=== PATIENT | male | born 1945 | race Caucasian/White ===

== ENCOUNTER 2018-08-05 19:25 | Emergency (ER) | payer MEDICARE, SELFPAY ==
[2018-08-05 19:26] VITALS: BP 157/96; PULSE 77; RESP 12; TEMP 36.4; O2SAT 95; BMI 31.2
--- NOTE | 2018-08-05 19:28 | ED.RN ---
RN CALLED FOR EKG, NO OLD EKGS IN MUSE
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
[2018-08-05] MEDS: 0.9% Normal Saline 1,000 ML 1000 ML IV (19:39)
[2018-08-05] MEDS: Diphth,Pertuss(Acell),Tet Vac 0.5 ML Vial IM (19:39)
[2018-08-05] MEDS: Ondansetron 4 MG/2 ML Vial IV (19:39)
[2018-08-05] MEDS: fentaNYL 100 MCG/2 ML Ampul 50 MCG IM (19:40)
[2018-08-05 19:45] LABS: Absolute Lymphocyte Count 2.56 X10^3/ul (0.83-4.51); Absolute Neutrophil Count 3.4 X10^3/uL (2.0-7.7); Basophil# 0.04 X10^3/uL; Basophil% 0.6 % (0-1); Eosinophil# 0.12 X10^3/uL; Eosinophils% 1.7 % (0-5); Hematocrit 40.9 % (40-54); Hemoglobin 13.4 g/dl (13.0-16.5); Lymphocyte # 2.56 X10^3/ul (4.0); Lymphocyte % 37.2 % (19-41); Mean Corp Hgb Conc 32.8 g/gl (32-36); Mean Corpuscular Hgb 30.7 pg (27.0-32.0); Mean Corpuscular Volume 93.6 fL (80-94); Mean Platelet Vol. 10.4 fl (6.2-12.0); Monocyte# 0.71 X10^3/uL; Monocyte% 10.3 % (0-10); Neutrophil # 3.43 X10^3/uL (2.7-7.7); Neutrophil % 49.8 % (47-70); Platelet Count 192 K/mm3 (150-450); RBC Distribution Width CV 12.8 % (11.6-14.6); RBC Distribution Width SD 43.9 fl (35.1-43.9); Red Blood Count 4.37 M/mm3 (4.6-6.2); White Blood Count 6.9 K/mm3 (4.4-11.0)
[2018-08-05 19:47] LABS: POSITIVE COUNT NO; POSITIVE DIFFERENTIAL NO; POSITIVE MORPHOLOGY NO
[2018-08-05 19:51] LABS: Anion Gap 6 (5-15); BUN 23 mg/dL (7-18); BUN/Creat Ratio 20.7 RATIO (10-20); Calcium,Total 8.2 mg/dL (8.5-10.1); Chloride 110 mmol/L (98-107); Creatinine, Serum 1.11 mg/dL (0.70-1.30); EST Glomerular Filtration Rate 69 mL/min (>60); Est Glom Filt Rate - Afr Amer 83 mL/min (>60); Glucose 125 mg/dL (74-106); Potassium 3.6 mmol/L (3.5-5.1); Sodium Level 142 mmol/L (136-145)
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
[2018-08-05 20:25] VITALS: BP 144/77; PULSE 77; RESP 14; O2SAT 94
[2018-08-05] MEDS: Morphine 4 MG/ML Syringe IV (20:31)
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
[2018-08-05 21:00] VITALS: BP 138/72; PULSE 77; RESP 14; O2SAT 93
[2018-08-05 21:11] VITALS: BP 138/72; PULSE 77; RESP 15; O2SAT 93
== END 2018-08-05 21:31 | disposition short-term general hospital (02) ==
LOC: ED 21:00
PROVIDERS: Emergency Provider Emergency Medicine; Family Provider Family Medicine; PCP Family Medicine
DX: S02.0XXA Fracture of vault of skull, initial encounter for closed fracture (principal); S02.82XA Fracture of other specified skull and facial bones, left side, initial encounter for closed fracture; S06.4X9A Epidural hemorrhage with loss of consciousness of unspecified duration, initial encounter; S02.2XXA Fracture of nasal bones, initial encounter for closed fracture; S01.01XA Laceration without foreign body of scalp, initial encounter; M25.531 Pain in right wrist; V23.4XXA Motorcycle driver injured in collision with car, pick-up truck or van in traffic accident, initial encounter; Y93.55 Activity, bike riding; Y92.9 Unspecified place or not applicable; Y99.9 Unspecified external cause status; N40.0 Benign prostatic hyperplasia without lower urinary tract symptoms; Z23 Encounter for immunization
CPT/HCPCS: 70450; 70486; 71045; 72125; 73110; 80048; 85025; 90715; 96361; 96372; 96374; 96375; 99285; J7030; A4216; J2405

== ENCOUNTER 2018-08-17 09:02 | Observation (INO) | payer MEDICARE, SELFPAY ==
[2018-08-17] VITALS (10 sets, daily range): BP systolic 120–141; BP diastolic 71–77; PULSE 68–88; RESP 11–16; TEMP 36.5–36.7; O2SAT 94–99; BMI 25.1; BMI 24.7
--- NOTE | 2018-08-17 09:04 | NURSING ---
NO OLD EKGS
--- NOTE | 2018-08-17 10:21 | RAD_ITS ---
STUDY: X-RAY CHEST REASON FOR EXAM: Male, 73 years old. Chest pain. TECHNIQUE: Single frontal view of the chest. COMPARISON: August 05, 2018 FINDINGS: There is mild hyperexpansion. There is no demonstrated pleural abnormality. Normal size heart. Normal mediastinum and raymon. Normal visualized pulmonary arteries. Normal visualized aortic arch and descending thoracic aorta. Normal visualized thoracic spine. Normal visualized ribs, clavicles, and shoulders. There is no demonstrated abnormality of the visualized soft tissue structures of the upper abdomen. RAD/Chest 1 View (Portable) IMPRESSION: Mild hyperexpansion with no acute pathology. Electronically Signed: Rick Kearns MD at 10:53 EST , Service support ,
--- NOTE | 2018-08-17 10:21 | EKG12_ITS ---
Test Reason : CP Blood Pressure : / mmHG Vent. Rate : 077 BPM Atrial Rate : 077 BPM P-R Int : 174 ms QRS Dur : 094 ms QT Int : 382 ms P-R-T Axes : 082 -25 067 degrees QTc Int : 432 ms Normal sinus rhythm Normal ECG Confirmed by ELSA BAEZ, BRIAN ([id number]), film editor supervisor CRIS ARAGON ([id number] on 08/20/2018 8:52:20 AM Referred By: Regi Flynn Confirmed By:BRIAN HUNTER MD
[2018-08-17 10:36] LABS: Absolute Lymphocyte Count 0.96 X10^3/ul (0.83-4.51); Absolute Neutrophil Count 2.5 X10^3/uL (2.0-7.7); Basophil# 0.04 X10^3/uL; Eosinophil# 0.06 X10^3/uL; Eosinophils% 1.5 % (0-5); Hematocrit 38.3 % (40-54); Hemoglobin 13.1 g/dl (13.0-16.5); Lymphocyte # 0.96 X10^3/ul (4.0); Lymphocyte % 23.2 % (19-41); Mean Corp Hgb Conc 34.2 g/gl (32-36); Mean Corpuscular Hgb 32.1 pg (27.0-32.0); Mean Corpuscular Volume 93.9 fL (80-94); Mean Platelet Vol. 9.4 fl (6.2-12.0); Monocyte# 0.51 X10^3/uL; Monocyte% 12.3 % (0-10); Neutrophil # 2.54 X10^3/uL (2.7-7.7); Neutrophil % 61.5 % (47-70); POSITIVE COUNT NO; POSITIVE DIFFERENTIAL NO; POSITIVE MORPHOLOGY NO; Platelet Count 226 K/mm3 (150-450); RBC Distribution Width CV 12.6 % (11.6-14.6); RBC Distribution Width SD 42.5 fl (35.1-43.9); Red Blood Count 4.08 M/mm3 (4.6-6.2); White Blood Count 4.1 K/mm3 (4.4-11.0)
[2018-08-17] MEDS: Acetaminophen 325 MG Tablet 650 MG PO (10:37)
[2018-08-17] MEDS: 0.9% Normal Saline 1,000 ML 150 ML IV ×2 (10:40→19:34)
[2018-08-17 10:53] LABS: Anion Gap 7 (5-15); BUN 14 mg/dL (7-18); BUN/Creat Ratio 13.5 RATIO (10-20); Calcium,Total 8.3 mg/dL (8.5-10.1); Chloride 108 mmol/L (98-107); Creatinine, Serum 1.04 mg/dL (0.70-1.30); EST Glomerular Filtration Rate 74 mL/min (>60); Est Glom Filt Rate - Afr Amer 90 mL/min (>60); Estimated Creatinine Clearance 65.32 ml/min; Glucose 103 mg/dL (74-106); Potassium 3.9 mmol/L (3.5-5.1); Sodium Level 141 mmol/L (136-145)
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
--- NOTE | 2018-08-17 11:24 | NURSING ---
DR MIKI JACOB
--- NOTE | 2018-08-17 12:38 | EKG12_ITS ---
Test Reason : CP Blood Pressure : / mmHG Vent. Rate : 078 BPM Atrial Rate : 078 BPM P-R Int : 174 ms QRS Dur : 094 ms QT Int : 400 ms P-R-T Axes : 081 -33 064 degrees QTc Int : 456 ms Normal sinus rhythm Left axis deviation Abnormal ECG Confirmed by ALONA BAEZ, KEMAL ([id number]), editorial director CRIS ARAGON ([id number] on 08/21/2018 10:16:05 AM Referred By: Regi Flynn Confirmed By:KEMAL SAGE MD
--- NOTE | 2018-08-17 13:06 | ECHOD_ITS ---
Reason For Study: Murmur Procedure This was a 2D Doppler, Color Flow transthoracic echocardiogram. Exam performed portable in patient room. Left Ventricle Normal LV size. Mild concentric left ventricular hypertrophy. Left ventricular systolic function is normal. The estimated ejection fraction is 60 %. No regional wall motion abnormalities noted. Right Ventricle Normal RV size. Normal systolic function. Atria The left atrium is moderately enlarged. Normal right atrium. Mitral Valve Posterior leaflet mitral valve prolapse. Moderately severe (3+) anteriorly directed mitral valve insufficiency. Tricuspid Valve Normal tricuspid valve. Unable to estimate RV systolic pressure due to inadequate jet, pulmonary artery pressure probably normal. Aortic Valve Normal aortic valve. Trisinus/trileaflet aortic valve. Pulmonic Valve Normal pulmonic valve. Great Vessels Normal aortic root. The pulmonary artery is normal size. Normal inferior vena cava. Pericardium/Pleural No pericardial effusion. MMode/2D Measurements & Calculations LVIDd: 5.4 cm IVSd: 1.3 cm Ao root diam: 3.7 cm LVIDs: 3.1 cm LVPWd: 1.4 cm LA dimension: 4.7 cm FS: 42.8 % LAV(MOD-bp): 106.3 ml LA A4 area: 30.4 cm2 RA A4 area: 14.7 cm2 LAV(MOD-bp) Indexed: 54.3 ml/m2 LAV(MOD-sp2): 97.7 ml LAV(MOD-sp4): 105.6 ml Time Measurements MV dec time: 0.27 sec Doppler Measurements & Calculations MV E max robbie: 105.7 cm/sec MV V2 max: 129.0 cm/sec MV P1/2t max robbie: 131.0 cm/sec MV A max robbie: 90.6 cm/sec MV max P.7 mmHg MV P1/2t: 92.6 msec MV E/A: 1.2 MV V2 mean: 75.9 cm/sec MV dec slope: 414.5 cm/sec2 MV mean P.6 mmHg MVA(P1/2t): 2.4 cm2 MV V2 VTI: 36.4 cm Ao V2 max: 111.3 cm/sec LV V1 max: 99.2 cm/sec MR max robbie: 522.8 cm/sec Ao max P.0 mmHg LV V1 max P.9 mmHg MR max P.3 mmHg PA V2 max: 93.4 cm/sec Interpretation Summary Normal LV size. Mild concentric left ventricular hypertrophy. Left ventricular systolic function is normal. The estimated ejection fraction is 60 %. The left atrium is moderately enlarged. Posterior leaflet mitral valve prolapse. Moderately severe (3+) anteriorly directed mitral valve insufficiency. Ordering Physician: Regi Flynn Referring Physician: Regi Flynn Performed By: Yahir Dennis RCS
[2018-08-17] MEDS: oxyCODONE 5 MG Tablet PO ×2 (13:50→19:46)
[2018-08-17 15:19] LABS: Cholesterol 207 mg/dL (200); High Density Lipoprotein 48 mg/dL; Triglycerides 75 mg/dL; Very Low Density Lipoprotein 15 mg/dL (5-40)
[2018-08-18] VITALS (14 sets, daily range): BP systolic 112–141; BP diastolic 67–70; PULSE 71–92; RESP 16; TEMP 36.4–36.9; O2SAT 95–97
[2018-08-18] MEDS: 0.9% Normal Saline 1,000 ML 150 ML IV ×2 (02:03→08:35)
[2018-08-18 05:14] LABS: Absolute Lymphocyte Count 1.24 X10^3/ul (0.83-4.51); Absolute Neutrophil Count 3.8 X10^3/uL (2.0-7.7); Basophil# 0.03 X10^3/uL; Basophil% 0.5 % (0-1); Eosinophil# 0.12 X10^3/uL; Hematocrit 36.1 % (40-54); Hemoglobin 11.8 g/dl (13.0-16.5); Lymphocyte # 1.24 X10^3/ul (4.0); Mean Corp Hgb Conc 32.7 g/gl (32-36); Mean Corpuscular Hgb 31.2 pg (27.0-32.0); Mean Corpuscular Volume 95.5 fL (80-94); Mean Platelet Vol. 9.7 fl (6.2-12.0); Monocyte# 0.72 X10^3/uL; Monocyte% 12.2 % (0-10); Neutrophil # 3.78 X10^3/uL (2.7-7.7); Platelet Count 216 K/mm3 (150-450); RBC Distribution Width SD 43.2 fl (35.1-43.9); Red Blood Count 3.78 M/mm3 (4.6-6.2); White Blood Count 5.9 K/mm3 (4.4-11.0)
[2018-08-18 05:17] LABS: POSITIVE COUNT NO; POSITIVE DIFFERENTIAL NO; POSITIVE MORPHOLOGY NO
[2018-08-18 05:35] LABS: Anion Gap 7 (5-15); BUN 15 mg/dL (7-18); BUN/Creat Ratio 15.7 RATIO (10-20); Calcium,Total 7.9 mg/dL (8.5-10.1); Chloride 113 mmol/L (98-107); Creatinine, Serum 0.95 mg/dL (0.70-1.30); EST Glomerular Filtration Rate 82 mL/min (>60); Est Glom Filt Rate - Afr Amer 99 mL/min (>60); Estimated Creatinine Clearance 71.51 ml/min; Glucose 98 mg/dL (74-106); Potassium 4.1 mmol/L (3.5-5.1); Sodium Level 143 mmol/L (136-145)
[2018-08-18] MEDS: Magnesium Hydroxide 30 ML UDC PO (09:07)
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
[2018-08-18] MEDS: oxyCODONE 5 MG Tablet PO (15:10)
[2018-08-19] VITALS (8 sets, daily range): BP systolic 117–125; BP diastolic 64–73; PULSE 71–93; RESP 16–18; TEMP 36.4–36.6; O2SAT 93–97
[2018-08-19] MEDS: oxyCODONE 5 MG Tablet PO ×3 (02:31→12:57)
--- NOTE | 2018-08-19 05:55 | EKG12_ITS ---
Test Reason : AM Blood Pressure : / mmHG Vent. Rate : 074 BPM Atrial Rate : 074 BPM P-R Int : 182 ms QRS Dur : 094 ms QT Int : 388 ms P-R-T Axes : 080 -17 062 degrees QTc Int : 430 ms Normal sinus rhythm Normal ECG Confirmed by ALONA BAEZ, KEMAL ([id number]), editor at large CRIS ARAGON ([id number] on 08/21/2018 10:12:50 AM Referred By: Regi Flynn Confirmed By:KEMAL SAGE MD
[2018-08-19 06:02] LABS: Anion Gap 7 (5-15); BUN 13 mg/dL (7-18); BUN/Creat Ratio 13.8 RATIO (10-20); Calcium,Total 8.2 mg/dL (8.5-10.1); Chloride 112 mmol/L (98-107); Creatinine, Serum 0.94 mg/dL (0.70-1.30); EST Glomerular Filtration Rate 83 mL/min (>60); Est Glom Filt Rate - Afr Amer 101 mL/min (>60); Estimated Creatinine Clearance 72.27 ml/min; Glucose 98 mg/dL (74-106); Sodium Level 143 mmol/L (136-145)
[2018-08-19 06:08] LABS: Absolute Lymphocyte Count 1.12 X10^3/ul (0.83-4.51); Absolute Neutrophil Count 4.8 X10^3/uL (2.0-7.7); Basophil# 0.03 X10^3/uL; Basophil% 0.4 % (0-1); Eosinophils% 1.5 % (0-5); Hematocrit 36.8 % (40-54); Lymphocyte # 1.12 X10^3/ul (4.0); Lymphocyte % 16.4 % (19-41); Mean Corp Hgb Conc 32.6 g/gl (32-36); Mean Corpuscular Hgb 31.1 pg (27.0-32.0); Mean Corpuscular Volume 95.3 fL (80-94); Mean Platelet Vol. 9.6 fl (6.2-12.0); Monocyte# 0.78 X10^3/uL; Monocyte% 11.5 % (0-10); Neutrophil # 4.76 X10^3/uL (2.7-7.7); Neutrophil % 69.9 % (47-70); Platelet Count 213 K/mm3 (150-450); RBC Distribution Width SD 43.9 fl (35.1-43.9); Red Blood Count 3.86 M/mm3 (4.6-6.2); White Blood Count 6.8 K/mm3 (4.4-11.0)
[2018-08-19 06:46] LABS: Partial Thromboplast Time 30.7 Seconds (24.1-36.2); Prothrombin Time (Protime)PT. 13.6 SECONDS (11.7-14.9)
[2018-08-19 07:02] LABS: POSITIVE COUNT NO; POSITIVE DIFFERENTIAL NO; POSITIVE MORPHOLOGY NO
--- NOTE | 2018-08-19 12:37 | STRESSREP ---
Stress Test Report Exercise myocardial perfusion stress test. 73-year-old man with a history of chest pain and mitral valve disease. Stress protocol: Resting EKG demonstrates normal sinus rhythm with a rate of 68 bpm normal intervals are noted. The patient exercised according to regular Dylan protocol for a total duration of 9 minutes. Patient completed stage III of the Dylan protocol. The maximum heart rate attained was 155 bpm which was 105% of maximum predicted heart rate the maximum workload was 10.1 metabolic equivalents. At rest there were no ST or T wave changes noted suggest ischemia peak exercise upsloping ST changes only were noted with number the criteria for ischemia. No clinical angina was noted. The patient had a short burst of a supraventricular tachyarrhythmia lasting approximately 10 beats. The test was terminated due to leg fatigue. The resting blood pressure 152/80 with a peak blood pressure 178/68 mmHg. Myocardial perfusion protocol. 11.9 mCi of technetium 99m sestamibi was injected at rest. Patient exercised according to regular Dylna protocol for total duration of 9 minutes. At peak exercise 32.3 mCi of technetium 99m sestamibi was injected stress images were obtained stress and rest images were reconstructed and compared in the short axis vertical long horizontal long axis. Gated images were also obtained per Perfusion SPECT analysis. Review of the stress images post attenuation correction demonstrated normal perfusion noted in all the rest of the myocardium. There is significant GI uptake noted obscuring part of the inferior wall. No significant change however is noted to suggest reversibility. There is thickening of all matute noted. Gated SPECT analysis: The gated ejection fraction is noted to be 66%. Conclusion: Normal exercise myocardial perfusion stress test at a high workload. Normal ejection fraction. No ischemia noted.
[2018-08-19] MEDS: Acetaminophen 325 MG Tablet 650 MG PO (12:58)
--- NOTE | 2018-08-19 14:04 | NURSING ---
This RN taking over care at this time
--- NOTE | 2018-08-19 14:14 | CHAPLAIN ---
Type of Pastoral Visit _x__ Initial Visit ___ Follow-up Visit ___ On-call Visit ___ General Patient Visit ___ Spiritual Assessment ___ Family Conference ___ Bereavement ___ Rapid Response ___ Code Blue ___ Other (describe below) Pastoral Care Referral From _x__ Patient ___ Family ___ Nurse ___ Physician ___ Physical Therapy Supervisor ___ Network Desktop Support Specialist ___ Other (describe below) Sacrament/Intervention _x__ Active listening ___ Anointing ___ Mandaen ___ Bereavement ___ Communion ___ Cara exploration ___ ___ Life review _x__ Prayer ___ Reconciliation ___ Sacrament of Sick _x__ Supportive presence ___ Wedding ___ Other (describe below) Pastoral Comments
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
--- NOTE | 2018-08-19 15:35 | DCINST_ITS ---
You will use the following diet at home:: Cardiac Your food should be the consistency of: Regular Your liquids should be the consistency of: Regular/Thin Discharge Activity: Return to Normal Activity Weight Bearing Status: Weight bearing as tolerated Call your doctor if you observe: Shortness of breath, Dizziness, Fainting spells, Swelling in the ankles, Chest pain Instructions: Recognizing a Heart Attack or Angina, Heart Valve Problems: Mitral Valve Prolapse Allergies/Adverse Reactions: Allergies tamsulosin [From Flomax] Allergy (Verified 08/17/18 09:08) Unknown Medications to take at Discharge Nitroglycerin [Nitrostat] 0.4 mg SUBLINGUAL Q5M PRN #30 tab 08/19/18 Oxycodone HCl/Acetaminophen [Percocet 2.5-325 mg Tablet] 1 tab PO Q6H PRN PRN 5 Days #10 tab 08/19/18 The following prescriptions were given: Oxycodone HCl/Acetaminophen [Percocet 2.5-325 mg Tablet] 1 tab PO Q6H PRN PRN 5 Days #10 tab PRN Reason: Pain Nitroglycerin [Nitrostat] 0.4 mg SUBLINGUAL Q5M PRN #30 tab PRN Reason: Cardiac/Chest Pain Primary Care Physician: Albin Neumann MD [Primary Care Provider] - Please follow up with your Primary Care Physician in: one week Test Results: Test results from this visit will be discussed in further detail at your follow- up appointment, if applicable. Please Follow Up With: Juarez Ortez MD When: 1-2 weeks Proposed Discharge Date: 08/19/18
== END 2018-08-19 15:34 | disposition home or self-care (01) ==
LOC: ED 10:15 → PCU 11:54
PROVIDERS: Admitting Provider Student in an Organized Health Care Education/Training Program; Emergency Provider Emergency Medicine; Family Provider Family Medicine; PCP Family Medicine; Referring Provider Student in an Organized Health Care Education/Training Program; Visit Provider Student in an Organized Health Care Education/Training Program
DX: R07.89 Other chest pain (principal); Z82.49 Family history of ischemic heart disease and other diseases of the circulatory system; N40.0 Benign prostatic hyperplasia without lower urinary tract symptoms; S06.309D Unspecified focal traumatic brain injury with loss of consciousness of unspecified duration, subsequent encounter; V19.6 Unspecified pedal cyclist injured in collision with other and unspecified motor vehicles in traffic accident; I34.0 Nonrheumatic mitral (valve) insufficiency
CPT/HCPCS: 36415; 71045; 78452; 80048; 80061; 84484; 85025; 85610; 85730; 93005; 93017; 93306; 96360; 96361; 97161; 97165; 97802; 99218; 99285; A9500; J7030; A4216; G0378

== ENCOUNTER 2018-08-24 06:48 | Inpatient (IN) | payer MEDICARE, SELFPAY ==
[2018-08-17 12:44] VITALS: BMI 24.7
[2018-08-24] VITALS (8 sets, daily range): BP systolic 116–142; BP diastolic 57–70; PULSE 83–121; RESP 15–18; TEMP 36.7–37.3; O2SAT 95–96; BMI 25.5; BMI 25.6
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
[2018-08-24 10:04] LABS: Bacteria 0 SEEN /hpf (None Seen); Mucous, Urine 0 SEEN /hpf (<or=2+); Squamous Epithelial Cells - UA 0 SEEN /hpf (0-5)
[2018-08-24] MEDS: Morphine 2 MG/ML Syringe 1 MG IV (10:06)
[2018-08-24] MEDS: 0.9% Normal Saline 1,000 ML 100 ML IV ×2 (10:06→19:46)
[2018-08-24] MEDS: Senna Tablet 1 TABLET PO ×2 (10:06→20:09)
[2018-08-24] MEDS: Finasteride 5 MG Tablet PO (10:06)
[2018-08-24 10:25] LABS: Color, Urine Yellow (Yellow); Glucose, Dipstick Normal (Normal); Ketone-Dipstick Negative (Negative); Leukocyte Esterase-Dipstick 100 /ul (Negative); Nitrite-Dipstick Negative (Negative); Occult Blood-Urine 250 /ul (Negative); Protein-Dipstick 500 mg/dl (Negative); Urine Bilirubin Dipstick Negative (Negative); Urine Urobilinogen Normal (Normal)
[2018-08-24 10:32] LABS: Red Blood Cells-Urine > 100 SEEN /hpf (0-5); Urine Clarity Cloudy (Clear); White Blood Cells 0-5 SEEN /hpf (0-5)
--- NOTE | 2018-08-24 10:38 | CM.UR ---
RN CM Assessment Met face to face with patient for initial transition planning/care coordination assessment. Introduced myself and my role. Verb understanding and agreement for assessment. Presentation: Transfer from [facility] for ileus and obstructive kidney stone. PCP: Dr. Neumann Specialists: none Preferred Pharmacy: [facility] Insurance: [employer] [facility]: per chart and confirmed by patient--has daughter, Ann-Marie Andres listed. is still alive. Home: 1 story with 3 steps. ADLs: Independent Transportation: He drives horse and buggy or bicycle. DME: Wheelchair. Denies needing any other dme. SNF/HHC: None Passport/waiver head stock operator: none Advance Directives: Doesn't have any. Has the forms but hasn't completed they as of yet. DC PLAN: Home with no needs. Jefe Redd RN, CCM.
[2018-08-24] MEDS: Acetaminophen 325 MG Tablet 650 MG PO (18:08)
[2018-08-25 00:30] VITALS: PULSE 63
[2018-08-25 02:00] VITALS: BP 112/59; PULSE 67; RESP 18; TEMP 37; O2SAT 95
[2018-08-25] MEDS: Acetaminophen 325 MG Tablet 650 MG PO ×2 (02:43→09:48)
[2018-08-25 03:50] VITALS: PULSE 63
--- NOTE | 2018-08-25 04:20 | RAD_ITS ---
STUDY: X-RAY - ABDOMEN/PELVIS REASON FOR EXAM: Male, 73 years old. Bilateral hydronephrosis. Abdominal pain TECHNIQUE: Single AP view of the abdomen / pelvis. COMPARISON: None. FINDINGS: Gaseous distended loops of transverse and right colon. No evidence of small bowel obstruction. Fecal retention in the right and left hemicolon. There is no demonstrated free abdominal air. The visualized liver, spleen and kidneys are grossly normal in size and morphology. Normal soft tissue structures. There are diffuse degenerative changes of the visualized lumbar spine. RAD/Abdomen Single View IMPRESSION: Gaseous distended loops of colon with fecal retention Electronically Signed: Elliot Bass DO at 9:25 EST Tel , Service support ,
[2018-08-25] MEDS: 0.9% Normal Saline 1,000 ML 100 ML IV (05:03)
[2018-08-25 06:42] LABS: Absolute Lymphocyte Count 1.02 X10^3/ul (0.83-4.51); Absolute Neutrophil Count 3.8 X10^3/uL (2.0-7.7); Basophil# 0.02 X10^3/uL; Basophil% 0.4 % (0-1); Eosinophil# 0.09 X10^3/uL; Eosinophils% 1.6 % (0-5); Hematocrit 33.9 % (40-54); Lymphocyte # 1.02 X10^3/ul (4.0); Lymphocyte % 18.4 % (19-41); Mean Corp Hgb Conc 32.4 g/gl (32-36); Mean Corpuscular Hgb 31.4 pg (27.0-32.0); Mean Corpuscular Volume 96.9 fL (80-94); Monocyte# 0.65 X10^3/uL; Monocyte% 11.7 % (0-10); Neutrophil # 3.76 X10^3/uL (2.7-7.7); Neutrophil % 67.7 % (47-70); Platelet Count 229 K/mm3 (150-450); RBC Distribution Width CV 13.2 % (11.6-14.6); RBC Distribution Width SD 44.7 fl (35.1-43.9); White Blood Count 5.6 K/mm3 (4.4-11.0)
[2018-08-25 06:53] LABS: BUN 15 mg/dL (7-18); Creatinine, Serum 1.16 mg/dL (0.70-1.30); EST Glomerular Filtration Rate 66 mL/min (>60); Estimated Creatinine Clearance 58.56 ml/min; Glucose 91 mg/dL (74-106)
[2018-08-25 06:54] LABS: Anion Gap 7 (5-15); BUN/Creat Ratio 12.9 RATIO (10-20); Chloride 112 mmol/L (98-107); Est Glom Filt Rate - Afr Amer 79 mL/min (>60); Potassium 3.9 mmol/L (3.5-5.1); Sodium Level 145 mmol/L (136-145)
[2018-08-25 07:13] LABS: POSITIVE COUNT NO; POSITIVE DIFFERENTIAL NO; POSITIVE MORPHOLOGY NO
[2018-08-25 07:20] VITALS: PULSE 80
[2018-08-25 07:28] VITALS: O2SAT 95
[2018-08-25 07:30] VITALS: BP 121/69; PULSE 70; RESP 18; TEMP 37.1; O2SAT 95
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
[2018-08-25] MEDS: Senna Tablet 1 TABLET PO (09:49)
[2018-08-25] MEDS: Finasteride 5 MG Tablet PO (09:49)
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
== END 2018-08-25 10:25 | disposition home or self-care (01) | DRG 683 ==
PROVIDERS: Admitting Provider Hospitalist; Family Provider Family Medicine; PCP Family Medicine; Visit Provider Hospitalist
DX: N17.9 Acute kidney failure, unspecified (principal); N13.8 Other obstructive and reflux uropathy; K56.0 Paralytic ileus; N40.1 Benign prostatic hyperplasia with lower urinary tract symptoms; N13.39 Other hydronephrosis; N20.0 Calculus of kidney; N21.0 Calculus in bladder; S02.0XXD Fracture of vault of skull, subsequent encounter for fracture with routine healing; S02.82XD Fracture of other specified skull and facial bones, left side, subsequent encounter for fracture with routine healing; S02.2XXD Fracture of nasal bones, subsequent encounter for fracture with routine healing; V13.4XXD Pedal cycle driver injured in collision with car, pick-up truck or van in traffic accident, subsequent encounter; I34.1 Nonrheumatic mitral (valve) prolapse
CPT/HCPCS: 36415; 70450; 74018; 80048; 81001; 85025; 87086; 97162; 97166; J7030

== ENCOUNTER 2018-09-19 07:31 | Observation (INO) | payer MEDICARE, SELFPAY ==
[2018-08-24 06:53] VITALS: BMI 25.5
[2018-09-06 09:06] VITALS: BMI 25.1
[2018-09-06 10:04] VITALS: BP 127/76; PULSE 75; RESP 16; TEMP 36.8; O2SAT 96; BMI 25.0
[2018-09-06 11:14] LABS: Thyroid Stim Hormone (TSH) 1.91 uIU/mL (0.358-3.74)
--- NOTE | 2018-09-17 16:57 | PCM.HP.BLA ---
History and Physical Date of Admission: 09/18/18 I have urinary retention. HPI: JOAQUÍN BOLDEN is a 73 year-old male patient who was referred by CRISTIANA ARTHUR M.D. who is here for urinary retention. His problem was diagnosed 2 weeks ago. His current symptoms did not begin after he had a surgical procedure. His urinary retention is being treated with johnson catheter. Patient denies suprapubic tube, intemittent catheterization, flomax, hytrin, cardura, uroxatrol, rapaflo, avodart, and proscar. He does not have an abnormal sensation when needing to urinate. He does have to strain or bear down to start his urinary stream. He does not have a good size and strength to his urinary stream. He is not having problems with emptying his bladder well. His urine has shut off completely. He is not having problems with urinary control or incontinence. He has previously had an indwelling catheter in for more than two weeks at a time. CC: I have symptoms of an enlarged prostate. HPI: He has been treated with Proscar. The patient has never had a surgical procedure for bladder outlet obstruction to his prostate. He does not have to wait a long time to start his urinary stream. He does have to strain or bear down to start his urinary stream. He does not have a good size and strength to his urinary stream. He does not dribble at the end of urination. He is not having problems with emptying his bladder well. His urine has shut off completely. He has previously had an indwelling catheter in for more than two weeks at a time. 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 Tobacco Use Assessment Completed: Used Tobacco in last 30 days? Smoking cessation counseling was provided. Does not use smokeless tobacco. Has never drank. Does not use drugs. Drinks 3 caffeinated drinks per day. Has not had a blood transfusion. REVIEW OF SYSTEMS: Constitutional: Patient denies fever, chills, weight loss, and weight gain. Eyes: Patient denies blurry vision, cataracts, and glaucoma. Ears, Nose, Mouth, Throat: Patient denies hearing loss, sinus infections, and sleep apnea. Cardiovascular: Patient denies chest pains, swollen ankles, irregular heartbeat, and pacemaker/defib. Respiratory: Patient denies shortness of breath, wheezing, oxygen, and cpap machine. Gastrointestinal: Patient denies constipation, vomiting, nausea, diarrhea, and abdominal pain. Genitourinary: Patient reports frequent urination, urinary retention, painful urination, history of stones, difficulty starting stream, and weak stream/scanty. Patient denies get up at night to void, leakage of urine, blood in the urine, frequent uti's, and bedwetting. Musculoskeletal: Patient denies sore muscles, back pain, and gout. Integumentary/Skin: Patient denies rash, skin cancer, and chronic itching. Neurological: Patient denies falling/unsteady, paralysis, and stroke/tia. Hematologic/Lymphatic: Patient denies abnormal bleeding, blood transfusion, swollen lymph nodes, deep venous thrombosis, and pulmonary embolism. VITAL SIGNS: 08/29/2018 09:21 AM Weight 175 lb / 79.38 kg Height 70 in / 177.8 cm BP 128/64 mmHg BMI 25.1 kg/m? - BMI Counseling was provided. PHYSICAL EXAMINATION: Anus and Perineum: No hemorrhoids. No anal stenosis. No rectal fissure, no anal fissure. No edema, no dimple, no perineal tenderness, no anal tenderness. Scrotum: No lesions. No edema. No cysts. No warts. Epididymides: Right: no spermatocele, no masses, no cysts, no tenderness, no induration, no enlargement. Left: no spermatocele, no masses, no cysts, no tenderness, no induration, no enlargement. Testes: No tenderness, no swelling, no enlargement left testes. No tenderness, no swelling, no enlargement right testes. Normal location left testes. Normal location right testes. No mass, no cyst, no varicocele, no hydrocele left testes. No mass, no cyst, no varicocele, no hydrocele right testes. Urethral Meatus: Normal size. No lesion, no wart, no discharge, no polyp. Normal location. Penis: Circumcised, no warts, no cracks. No dorsal Peyronie's plaques, no left corporal Peyronie's plaques, no right corporal Peyronie's plaques, no scarring, no warts. No balanitis, no meatal stenosis. Prostate: Prostate about 80 grams. Left lobe normal consistency, right lobe normal consistency. Symmetrical lobes. No prostate nodule. Left lobe no tenderness, right lobe no tenderness. Seminal Vesicles: Nonpalpable. Sphincter Tone: Normal sphincter. No rectal tenderness. No rectal mass. MULTI-SYSTEM PHYSICAL EXAMINATION: Constitutional: Well-nourished. No physical deformities. Normally developed. Good grooming. Neck: Neck symmetrical, not swollen. Normal tracheal position. Respiratory: No labored breathing, no use of accessory muscles. Cardiovascular: Normal temperature, normal extremity pulses, no swelling, no varicosities. Lymphatic: No enlargement of neck, axillae, groin. Skin: No paleness, no jaundice, no cyanosis. No lesion, no ulcer, no rash. Neurologic / Psychiatric: Oriented to time, oriented to place, oriented to person. No depression, no anxiety, no agitation. Gastrointestinal: No mass, no tenderness, no rigidity, non obese abdomen. Eyes: Normal conjunctivae. Normal eyelids. Ears, Nose, Mouth, and Throat: Left ear no scars, no lesions, no masses. Right ear no scars, no lesions, no masses. Nose no scars, no lesions, no masses. Normal hearing. Normal lips. Musculoskeletal: Normal gait and station of head and neck. PAST DATA REVIEWED: Source Of History: Patient Lab Test Review: PSA Records Review: Previous Doctor Records, Previous Hospital Records, Previous Patient Records Urine Test Review: Urinalysis X-Ray Review: C.T. Abdomen/Pelvis: Reviewed Report. C.T. Abdomen: Reviewed Report. PROCEDURES: None ASSESSMENT: ICD-10 Details 1 : Other retention of urine - R33.8 2 Benign prostatic hyperplasia with lower urinary tract symptoms - N40.1 3 Calculus in bladder - N21.0 PLAN: Schedule Procedure: Unspecified Date - Cryoablation Prostate - [id number] Document Letter(s): Created for Patient: Clinical Summary The risks, benefits, and some of the possible complications of the proposed procedure were discussed with the patient at length and in detail including the possibility of postoperative urinary urgency, frequency, incontinence, dysuria, hematuria, retrograde ejaculation, urinary retention, bladder neck contracture, and urethral stricture, as well as the need for a bladder biopsy, retrograde pyelograms, resection of a bladder lesion, dilation of the urethra, postoperative catheterization, placement of a ureteral stent, discovering asymptomatic prostate cancer and others. The possible need for postoperative treatments including further surgical procedures was discussed with the patient. The general risks of the operative procedure and the perioperative period were discussed with the patient at length and in detail including swelling, pain, nausea, vomiting, fever, chills, infection, wound infection, sepsis, renal failure, internal or external bleeding, intraoperative bowel, organ or vascular injuries, postoperative formation of scar tissue, the need for blood transfusions, deep venous thrombosis or blood clots, pulmonary embolus, pneumonia, respiratory failure, heart attack, stroke, he and others. All of the patient's questions were answered and he voiced an understanding of these risks, benefits and possible complications. The patient gave fully informed consent to proceed with the procedure. Notes: 73 yo male with BPH and bladder stones also with kidney stone - plan to treat later plan for TUrP and laser bladder stones at [facility].
[2018-09-18] VITALS (12 sets, daily range): BP systolic 100–121; BP diastolic 54–67; PULSE 67–86; RESP 12–18; TEMP 36.1–37.1; O2SAT 92–98; BMI 25.0
[2018-09-18] MEDS: Cefazolin 2 GM in 0.9% Normal Saline 100 ML IV (10:46)
--- NOTE | 2018-09-18 10:49 | DCINST_ITS ---
Discharge Diet: Light diet - advance as tolerated Discharge Activity: Return to Normal Activity Call your doctor if your incision/area has: Continuous Slow Oozing, Sudden Increased Bleeding, Increased Pain/ Swelling, Increased Redness, Foul Smelling Discharge, Swelling at the incision site Call your doctor if you observe: Fever of 101 or Higher, Inability to urinate, Uncontrolled pain Suture Line Care: Avoid Pulling/Pushing, Avoid Pinching/Bending Instructions: Transurethral Resection of the Prostate (TURP): Home Recovery Allergies/Adverse Reactions: Allergies tamsulosin [From Flomax] Allergy (Verified 09/18/18 09:20) Unknown Medications to take at Discharge Finasteride [Proscar] 5 mg PO DAILY #90 tab 08/25/18 Chaga 10 tab PO DAILY 09/06/18 Ibuprofen [Motrin Ib] 200 mg PO PRN PRN 09/06/18 Ciprofloxacin [Cipro] 500 mg PO BID #14 tablet 09/18/18 Ibuprofen 600 mg PO Q6H PRN PRN #20 tablet 09/18/18 The following prescriptions were given: Ibuprofen 600 mg PO Q6H PRN PRN #20 tablet PRN Reason: Pain Ciprofloxacin [Cipro] 500 mg PO BID #14 tablet Primary Care Physician: Albin Neumann MD [Primary Care Provider] - Test Results: Test results from this visit will be discussed in further detail at your follow- up appointment, if applicable. Please Follow Up With: Joo Estrada MD When: in 2 weeks, please call to make an appointment.
--- NOTE | 2018-09-18 11:10 | PROS_PTH ---
PATIENT: JOAQUÍN BOLDEN LOC: MS2 U#:[id number] AGE/SX: 73/M ROOM: [facility] [place] RE09/19/[address]: Dr. Joo Estrada MD : 1945 BED: 1 DIS: 09/20/2018 SPEC #: [id number] RECD: 09/18/18 13:10 STATUS: ANA BENNY #: [id number] HERMAN: 09/18/18 11:[address]: Joo Estrada DEPT: SURGICAL PATHOLOGY RECD BY: Sid Almanza ENTERED: 09/18/18 13:45 SP TYPE: TURP OTHR DR: Dr. Albin Neumann MD Tissues: Prostate, NOS Procedures: Surgery Specimen Level IV HEADER OPERATION: Cysto, TUR prostate PRE-OP DIAGNOSIS: Bladder stones, BPH, urinary retention TISSUE SUBMITTED: Prostate chips MICROSCOPIC DIAGNOSIS Prostate, transurethral resection: Benign nodule hyperplasia, glandular and stromal types. Mild chronic inflammation. AM:tracey 09/19/18 MICROSCOPIC DESCRIPTION Slides are reviewed. GROSS DESCRIPTION Received is one container labeled with the patient's name and designated prostate tissue. The specimen consists of multiple irregular fragments of pink-pryor, rubbery, soft tissue that in aggregate weigh 36 gm and measure in aggregate 9 x 9 x 3 cm. Bleach Boiler Filler tissue is submitted in 12 cassettes. / SJ:tracey 09/18/18 TC:3 CPT: 86089
--- NOTE | 2018-09-18 12:35 | PCM.OPRPT ---
Report of Operation Date of Procedure: 09/18/18 Pre-Operative Diagnosis: BPH with obstruction Post-Operative Diagnosis: Same Surgery/Procedure Performed:: Transurethral resection of a very large prostate Description of Surgical Findings:: 73-year-old male taken back to the operating room at the smooth induction of general anesthesia he was placed supine on the table and then a dorsolithotomy position. The catheter was removed penis and testicles are prepped and draped in usual sterile fashion he presented to the hospital for a transurethral resection of the prostate he has urinary retention from a very large prostate. 73-year-old male taken back to the operating of the smooth induction of anesthesia he was placed supine on the table the penis testicles are prepped and draped in usual fashion the catheter was removed we then went in with a 26 Frisian continuous flow resectoscope started resecting at the 6:[address] from the 6:00 to the 12:00 on the right-hand side of the prostate and then working my way from the 6:00 to the 12:00 in the left hand outside of the prostate no median lobe a very large bilateral lobes once this was all resected then I switched over to the button to vaporize the flapping tissue at the apical tissue to make sure that there is all smooth tissue smoothed out the resection obtained adequate hemostasis placed the catheter into the bladder try to irrigate but then it would not irrigate so I took the catheter back out I looked out some more clots cauterized more on the bladder neck obtain hemostasis from the bleeders but a catheter back in and then this time the catheter flowed nicely and inflated to 30 cc in the balloon. Had a very large prostate probably about an hour to have a resection time in total and was resected nicely catheter was in place and running smooth at the end of the case. Type of Anesthesia:: General Drains: 3 way johnson, 22 fr - Admit VTE Documentation VTE Present on Admission: No VTE Mechan Device Prophylaxis: SCD's
[2018-09-18] MEDS: 0.9% Normal Saline 1,000 ML 75 ML IV ×2 (13:30→21:22)
[2018-09-18] MEDS: Ciprofloxacin 400 MG/200 ML BAG 200 MG IV (18:17)
[2018-09-18] MEDS: Docusate Sodium 100 MG Capsule PO (21:22)
[2018-09-19 02:00] VITALS: BP 101/53; PULSE 64; RESP 16; TEMP 36.5; O2SAT 96
[2018-09-19] MEDS: Ciprofloxacin 400 MG/200 ML BAG 200 MG IV (06:39)
[2018-09-19 06:45] LABS: Hematocrit 33.6 % (40-54); Hemoglobin 10.8 g/dl (13.0-16.5); Mean Corp Hgb Conc 32.1 g/gl (32-36); Mean Corpuscular Hgb 30.4 pg (27.0-32.0); Mean Corpuscular Volume 94.6 fL (80-94); Platelet Count 191 K/mm3 (150-450); RBC Distribution Width CV 12.3 % (11.6-14.6); RBC Distribution Width SD 41.1 fl (35.1-43.9); Red Blood Count 3.55 M/mm3 (4.6-6.2); White Blood Count 7.6 K/mm3 (4.4-11.0)
[2018-09-19 06:50] LABS: Scan Indicated on CBC? Y/N NO
[2018-09-19 06:53] LABS: Anion Gap 5 (5-15); BUN 13 mg/dL (7-18); BUN/Creat Ratio 13.4 RATIO (10-20); Calcium,Total 7.8 mg/dL (8.5-10.1); Chloride 109 mmol/L (98-107); Creatinine, Serum 0.97 mg/dL (0.70-1.30); EST Glomerular Filtration Rate 81 mL/min (>60); Est Glom Filt Rate - Afr Amer 98 mL/min (>60); Estimated Creatinine Clearance 70.03 ml/min; Glucose 97 mg/dL (74-106); Potassium 3.9 mmol/L (3.5-5.1); Sodium Level 141 mmol/L (136-145)
--- NOTE | 2018-09-19 07:31 | PCM.PROGNOTE ---
Subjective: Urine looks pretty good today on light irrigation pink color had a very large prostate. - Physical Exam General: Alert, Oriented x3, Cooperative HEENT: Atraumatic, PERRLA, EOMI, Normocephalic Neck: Supple, No JVD, Negative Carotid Bruits Lungs: Clear to auscultation, Normal air movement Cardiovascular: Regular rate, No murmurs Abdomen: Bowel Sounds Present, Soft, Non Tender Extremities: No edema, Capillary Refill Less than 3 Seconds Skin: No rashes, No breakdown Musculoskeletal: No Tenderness to Palpation of Joints or Extremities Neurological: Cranial nerves II-XII grossly intact Psych/Mental Status: Normal Affect, Appropriate Vital Signs Temp Pulse Resp BP Pulse Ox 97.7 F L 64 16 101/53 L 96 09/19/18 02:00 09/19/18 02:00 09/19/18 02:00 09/19/18 02:00 09/19/18 02:00 Oxygen Delivery Method Room Air Weight: 79 kg Body Mass Index (BMI) 25.0 Intake and Output for Last 24 Hours 09/17/18 09/18/18 09/19/18 23:59 23:59 23:59 Intake Total 2099 / 2099 2236 / 2236 Output Total 345 / 345 2024 / 2024 Balance 1755 / 1755 211 / 211 Laboratory Tests Past 24 Hrs 09/19/18 09/19/18 06:17 06:17 WBC 7.6 RBC 3.55 L Hgb 10.8 L Hct 33.6 L MCV 94.6 H MCH 30.4 MCHC 32.1 RDW 12.3 RDW Differential 41.1 Plt Count 191 MPV 10.0 Sodium 141 Potassium 3.9 Chloride 109 H Carbon Dioxide 27.0 Anion Gap 5 BUN 13 Creatinine 0.97 Estim Creat Clear Calc 70.03 Est GFR (MDRD) Af Amer 98 Est GFR (MDRD) Non-Af 81 BUN/Creatinine Ratio 13.4 Glucose 97 Calcium 7.8 L Medical Necessity - Tobacco Use Smoking Status: Former smoker Assessment/Plan All Active Problems (Last Reviewed 09/06/18 @ 09:38 by Juarez Ortez MD) Pulmonary embolism (Resolved 2011) Preop cardiovascular exam (Acute) We will continue with CBI irrigation for 1 more day the patient can up up and walk around unfortunately cannot anticoagulated because of the prostate seen so large. We will continue with SCDs for DVT prophylaxis. Anticipate removal catheter tomorrow and home tomorrow.
[2018-09-19 07:38] VITALS: BP 106/48; PULSE 76; RESP 16; TEMP 37; O2SAT 95
[2018-09-19] MEDS: Docusate Sodium 100 MG Capsule PO ×2 (09:46→20:35)
[2018-09-19] MEDS: Pantoprazole Sodium 40 MG Tablet PO (09:46)
[2018-09-19] MEDS: 0.9% Normal Saline 1,000 ML 75 ML IV (11:16)
[2018-09-19 13:00] VITALS: O2SAT 95
[2018-09-19 14:22] VITALS: BP 111/61; PULSE 76; RESP 18; TEMP 36.9; O2SAT 95
[2018-09-19 20:39] VITALS: BP 104/49; PULSE 79; RESP 16; TEMP 36.9; O2SAT 94
[2018-09-20] MEDS: 0.9% Normal Saline 1,000 ML 75 ML IV (00:02)
[2018-09-20 03:00] VITALS: BP 107/60; PULSE 70; RESP 16; TEMP 37.3; O2SAT 94
[2018-09-20 07:26] VITALS: O2SAT 94
--- NOTE | 2018-09-20 07:29 | PCM.DC.SUM ---
Discharge Date and Diagnosis Date of Admission: 09/18/18 Date of Discharge: 09/20/18 - Secondary Discharge Diagnosis Chronic Problems (Last Reviewed 09/06/18 @ 09:38 by Juarez Ortez MD) Nonrheumatic mitral (valve) prolapse (Chronic) Hospital Course and Treatment Operations: None, TURP Summary of Care Provided: The patient is a 73 year old Male with large prostate s/p turp d/c home after voids on pod #2 - Physical Exam General: Alert, Oriented x3, Cooperative HEENT: Atraumatic, PERRLA, EOMI, Normocephalic Neck: Supple, No JVD, Negative Carotid Bruits Lungs: Clear to auscultation, Normal air movement Cardiovascular: Regular rate, No murmurs Abdomen: Bowel Sounds Present, Soft, Non Tender Extremities: No edema, Capillary Refill Less than 3 Seconds Skin: No rashes, No breakdown Musculoskeletal: No Tenderness to Palpation of Joints or Extremities Neurological: Cranial nerves II-XII grossly intact Psych/Mental Status: Normal Affect, Appropriate Vital Signs Temp Pulse Resp BP Pulse Ox 99.1 F 70 16 107/60 94 09/20/18 03:00 09/20/18 03:00 09/20/18 03:00 09/20/18 03:00 09/20/18 07:26 Oxygen Delivery Method Room Air Weight: 79 kg Body Mass Index (BMI) 25.0 Intake and Output for Last 24 Hours 09/18/18 09/19/18 09/20/18 23:59 23:59 23:59 Intake Total 2100 / 2100 3345 / 3345 1054 / 1054 Output Total 345 / 345 5795 / 5795 1300 / 1300 Balance 1755 / 1755 -2450 / -2450 -246 / -246 Discharge Diet: Light diet - advance as tolerated Discharge Activity: Return to Normal Activity Call your doctor if your incision/area has: Continuous Slow Oozing, Sudden Increased Bleeding, Increased Pain/ Swelling, Increased Redness, Foul Smelling Discharge, Swelling at the incision site Call your doctor if you observe: Fever of 101 or Higher, Inability to urinate, Uncontrolled pain Suture Line Care: Avoid Pulling/Pushing, Avoid Pinching/Bending Home Medications: Medications to take at Discharge Finasteride [Proscar] 5 mg PO DAILY #90 tab 08/25/18 Chaga 10 tab PO DAILY 09/06/18 Ibuprofen [Motrin Ib] 200 mg PO PRN PRN 09/06/18 Ciprofloxacin [Cipro] 500 mg PO BID #14 tablet 09/18/18 Ibuprofen 600 mg PO Q6H PRN PRN #20 tablet 09/18/18 Following Prescrptions Were Given to Patient: Ibuprofen 600 mg PO Q6H PRN PRN #20 tablet PRN Reason: Pain Ciprofloxacin [Cipro] 500 mg PO BID #14 tablet Primary Care Physician: Albin Neumann MD [Primary Care Provider] - Please Follow Up With: Joo Estrada MD When: in 2 weeks, please call to make an appointment. Patient Instructions: Transurethral Resection of the Prostate (TURP): Home Recovery Medical Necessity - Tobacco Use Smoking Status: Former smoker Meaningful Use Info Meaningful Use Diagnoses (Choose all that apply): None applicable
[2018-09-20 08:17] VITALS: BP 111/61; PULSE 77; RESP 16; TEMP 36.6; O2SAT 95
[2018-09-20] MEDS: Pantoprazole Sodium 40 MG Tablet PO (08:19)
[2018-09-20] MEDS: Docusate Sodium 100 MG Capsule PO (08:19)
[2018-09-20 13:26] VITALS: BP 107/58; PULSE 89; RESP 16; TEMP 36.8; O2SAT 98
== END 2018-09-20 16:18 | disposition home or self-care (01) ==
LOC: SDC 15:03 → MS2 20:42
PROVIDERS: Anesthesiology; Admitting Provider Urology; Family Provider Family Medicine; PCP Family Medicine; Referring Provider Urology; Visit Provider Urology
PROC: (CPT 52601; principal; 2018-09-18 11:00)
DX: N40.1 Benign prostatic hyperplasia with lower urinary tract symptoms (principal); N13.8 Other obstructive and reflux uropathy; R33.8 Other retention of urine; N21.0 Calculus in bladder; Z86.711 Personal history of pulmonary embolism; I25.2 Old myocardial infarction; Z87.891 Personal history of nicotine dependence; Z79.899 Other long term (current) drug therapy
CPT/HCPCS: 00914; 52601; 36415; 80048; 84443; 85027; 88305; 96361; 96365; 96366; 99218; J7030; J7120; G0378; G0379; J0744; J2405

== ENCOUNTER → 2018-12-31 16:28 | Outpatient (CLI) | payer MEDICARE, SELFPAY ==
[2018-09-18 14:42] VITALS: BMI 25.0
[2018-12-31 18:11] LABS: PSA,Total- Diagnostic 1.67 ng/mL (0.0-4.0)
== END ==
PROVIDERS: Family Provider Family Medicine; PCP Family Medicine; Referring Provider Urology; Visit Provider Urology
DX: R97.20 Elevated prostate specific antigen [PSA] (principal)
CPT/HCPCS: 36415; 84153

== ENCOUNTER → 2019-01-23 17:01 | Outpatient (CLI) | payer MEDICARE, SELFPAY ==
[2019-01-07 09:54] VITALS: BMI 26.1
[2019-01-23 17:18] LABS: Absolute Lymphocyte Count 1.31 X10^3/uL (0.83-4.51); Absolute Neutrophil Count 3.9 X10^3/uL (2.0-7.7); Basophil# 0.05 X10^3/uL; Basophil% 0.9 % (0-1); Eosinophil# 0.05 X10^3/uL; Eosinophils% 0.9 % (0-5); Hematocrit 39.9 % (40-54); Lymphocyte # 1.31 X10^3/ul (4.0); Lymphocyte % 22.4 % (19-41); Mean Corp Hgb Conc 32.6 g/dL (32-36); Mean Corpuscular Hgb 28.9 pg (27.0-32.0); Mean Corpuscular Volume 88.7 fL (80-94); Mean Platelet Vol. 10.1 fl (6.2-12.0); Monocyte# 0.57 X10^3/uL; Monocyte% 9.7 % (0-10); NRBC Flagged by Analyzer 0 % (0-5); Neutrophil # 3.85 X10^3/uL (2.7-7.7); Neutrophil % 65.8 % (47-70); Platelet Count 190 K/mm3 (150-450); RBC Distribution Width CV 14.8 % (11.6-14.6); RBC Distribution Width SD 48.1 fl (35.1-43.9); White Blood Count 5.9 K/mm3 (4.4-11.0)
[2019-01-23 17:51] LABS: Anion Gap 9 (5-15); BUN 25 mg/dL (7-18); BUN/Creat Ratio 23.8 RATIO (10-20); Calcium,Total 8.6 mg/dL (8.5-10.1); Chloride 109 mmol/L (98-107); Creatinine, Serum 1.05 mg/dL (0.70-1.30); EST Glomerular Filtration Rate 73 mL/min (>60); Est Glom Filt Rate - Afr Amer 89 mL/min (>60); Glucose 97 mg/dL (74-106); Potassium 4.1 mmol/L (3.5-5.1); Sodium Level 143 mmol/L (136-145)
== END ==
PROVIDERS: Family Provider Family Medicine; PCP Family Medicine; Referring Provider Internal Medicine Cardiovascular Disease; Visit Provider Internal Medicine Cardiovascular Disease
DX: I34.0 Nonrheumatic mitral (valve) insufficiency (principal)
CPT/HCPCS: 36415; 80048; 85025

== ENCOUNTER 2019-01-27 08:17 | Outpatient (CLI) | payer MEDICARE, SELFPAY ==
[2019-01-07 09:54] VITALS: BMI 26.1
[2019-01-27 08:34] VITALS: BMI 25.1
--- NOTE | 2019-01-27 08:50 | ECHOTEE_ITS ---
Reason For Study: MVP Medication MILADIS probe passed with minimal difficulty. No complications were noted. Cetacaine Topical [place] given X3 orally. Versed 1 mg given slow IVP. Fentanyl 50 mcg given slow IVP. Performed a rapid injection of agitated mix of 9 cc saline and 1cc air to assess for atrial septal defect. Left Ventricle Normal LV size. Left ventricular systolic function is normal. The estimated ejection fraction is 60 %. No regional wall motion abnormalities noted. Right Ventricle Normal RV size. Normal systolic function. Atria Bubble contrast study negative for right to left interatrial shunt. The left atrium is moderately enlarged. Normal right atrium. Mitral Valve Moderate mitral valve prolapse, posterior leaflet. Moderately severe (3+) eccentric mitral valve insufficiency. Tricuspid Valve Normal tricuspid valve. Mild tricuspid valve insufficiency. Aortic Valve Normal aortic valve. Trisinus/trileaflet aortic valve. Pulmonic Valve Normal pulmonic valve. Pericardium No pericardial effusion. Interpretation Summary Normal LV size. Left ventricular systolic function is normal. The estimated ejection fraction is 60 %. Moderate mitral valve prolapse, posterior leaflet Moderately severe (3+) eccentric mitral valve insufficiency. Ordering Physician: Juarez Ortez Referring Physician: Albin Neumann Performed By: Yahir Dennis RCS
--- NOTE | 2019-01-27 08:56 | HP.PCM_ITS ---
Problem List (1) Non-rheumatic mitral regurgitation Status: Chronic (2) Nonrheumatic mitral (valve) prolapse Status: Chronic History and Physical Date of Admission: 01/27/19 [facility] History of Present Illness Details: JOAQUÍN BOLDEN, is a 73 M who presents to the office today for a right and left heart cath. He was initially seen for mitral regurgitant murmur and this was confirmed with the echocardiogram which demonstrated an ejection fraction of 60%, moderately enlarged left atrium, posterior mitral valve leaflet prolapse and 3+ moderately severe anteriorly directed mitral regurgitation. He also underwent stress testing we did not demonstrate any evidence of ischemia. From the cardiovascular standpoint he appears to be doing well. He recently underwent an uneventful transurethral resection of the prostate. He has had no dizziness or diaphoresis near syncope or syncope. Intake Vitals signs: see chart Allergies tamsulosin [From Flomax] Allergy (Verified 01/07/19 09:54) Unknown [facility] Medical History Non-rheumatic mitral regurgitation (Chronic) Nonrheumatic mitral (valve) prolapse (Chronic) Enlarged prostate (Chronic) Nasal bone fractures (Chronic) Nondisplaced fracture of left frontal skull (Chronic) Acute kidney injury (Resolved 08/25/18) Adynamic ileus (Resolved) History of pulmonary embolism (Resolved) Hydronephrosis due to obstruction of bladder (Resolved 08/25/18) Traumatic epidural hematoma (Resolved) Surgical History History of transurethral resection of prostate (Resolved 08/2018) History of cataract surgery (Resolved) History of tonsillectomy (Resolved) Family History Father Myocardial infarction DC in his 40's CAD (coronary artery disease) Brother CAD (coronary artery disease) had a CABG age 65 Social History (Updated 01/07/19 @ 15:42 by Juarez Ortez MD) Smoking Status: Former smoker ROS Const Const: Negative for fatigue, weakness, headache(s), frequent falls, difficulty sleeping or excessive sweating Eyes Eyes: Negative for loss of peripheral vision, transient loss of vision, blurry vision, double vision or tunnel vision ENT ENT: Negative for headache(s), dizziness, Nosebleed/epistaxis or balance problems Cardio Chest Pain: No Palpitations: No Edema: None Muscle aches with walking: None Resp Respiratory: Negative for SOB with activity, SOB at rest, SOB orthopnea\SOB lying down, Cough or paroxysmal nocturnal dyspnea GI GI: Negative nausea, vomiting, heartburn or black,tarry stools : Negative for hematuria Musc Musc: Negative for muscle aches/ myalgia, muscle weakness, joint pain or balance problems Skin Skin: Negative non-healing lesions, rash or unusual bruising Neuro Neuro: Negative for dizziness, lightheadedness, near syncope, syncope, orthostatic symptoms, frequent falls, headache(s), weakness, blurry vision, double vision or lack of coordination [place] Hematologic/Lymphatic: Negative for easy bleeding or easy bruising Endo Endo: Negative for fatigue, excessive sweating or increased thirst/drinking Psych Psych: Negative for anxiety or depression Allergy Allergy/Immunology: Negative for hives, Negative for rash Cardiology Exam Const Appearance: cooperative, healthy appearing, no acute distress, well developed and well groomed Nutritional Appearance: average body habitus and well nourished Orientation: alert, awake and oriented x3 Head Head: normal to inspection, normocephalic and atraumatic Ears: hearing grossly normal bilaterally and external ears normal Nose: external nose normal, nares normal, nasal mucous membranes and turbinates normal, septum normal, no nasal discharge Face and Sinus: face symmetric Mouth: oral mucosae normal, tongue normal, oropharynx normal and moist mucous membranes Teeth and gingiva: dentition normal Throat: posterior oropharynx normal, tonsils normal and uvula midline Eyes General: appearance normal, both eyes and all related structures Eyelids: eyelids normal Conjunctivae: conjunctivae normal Pupils: PERRL, normal by confrontation and accommodation normal EOM: EOM intact bilaterally Neck Neck: normal visual inspection, trachea midline and no JVD JVD: +5 Carotids: normal carotid upstroke and bounding pulses Chest Chest inspection: normal inspection of the chest, symmetric chest movement and normal respiratory effort Auscultation: Bilateral: Clear to Auscultation Cardio Palpation: normal PMI Rate: regular rate Rhythm: regular rhythm Heart sounds: S1 normal, S2 normal and normal, physiologic split S2; negative rub, gallop or murmur Murmur: Grade 3/6, harsh, holosystolic and ELLA loudest at apex -> axilla GI GI: normal to inspection, soft, no hepatosplenomegaly and bowel sounds present Neuro General: alert, awake, oriented x3, gait normal, moves all extremities and no focal sensory deficit Skin Skin: no rashes or lesions noted Extremities Pulses: Normal: Right Femoral Pulse, Left Femoral Pulse, Right Dorsalis Pedis Pulse, Left Dorsalis Pedis Pulse, Right Posterior Tibial Pulse, Left Posterior Tibial Pulse, Right Radial Pulse, Left Radial Pulse Lower Extremity Edema: None: Bilateral Musculoskel Musculoskeletal: No joint tenderness Psych Psychological: normal affect Assessment & Plan 1. Non-rheumatic mitral regurgitation I34.0 Plan He does have evidence of mitral regurgitation and mitral valve prolapse which is at least moderately severe with an anteriorly directed jet. He will undergo a left heart catheterization, right heart catheterization, transesophageal echocardiogram today, a view to mitral valve repair. Coding Level of Care Code Off vis,est,level 3 Diagnoses Non-rheumatic mitral regurgitation I34.0
--- NOTE | 2019-01-27 12:13 | CL.D_ITS ---
Patient Name: JOAQUÍN BOLDEN Study Date: 01/27/2019 Performing: Juarez Ortez MD Ht: 70.07 inches 178 cm : 1945 Wt: 171.98 lbs 78.01 kg Age: 73 Gender: male BSA: 1.96 PROCEDURE(S) PERFORMED MY04-BHW/LHC/COR/LV CLINICAL PROFILE AND INDICATIONS Indications: Valvular Disease Heart Failure: None Stress/Imaging Stress/Image Study Performed: No CAD Presentations: No Sxs, no angina. CONCLUSIONS Normal coronary arteries Normal LV size, wall motion,and systolic function Right heart pressures - Normal Mitral Valve Insufficiency Moderate Mitral Valve Prolapse Severe RECOMMENDATIONS Surgery consult for Valve Replacement surgery DESCRIPTION OF PROCEDURE The patient arrived to the procedure lab. The risks and benefits of the procedure as well as a full d escription of our services here and current unavailability of surgical backup were fully explained to the patient and/or their significant other prior to the catheterization. The Timeout was completed, verifying the correct patient and procedure. The patient's procedural site was prepped and draped in the usual fashion. Local anesthetic was given subcutaneously to right radial region with Lidocaine 2% . Using a modified Seldinger technique, arterial access was obtained via the right radial artery, a 6 Fr sheath was inserted. A 7Fr thermal dilution catheter was inserted and right heart pressures were recorded, it was then advanced to PA position for cardiac outputs. Thermal dilution cardiac outputs w ere then recorded. O2 saturations were then obtained. The Thermal dilution catheter was then removed. Left Coronary Artery selective angiography was performed in multiple views using a 5 Fr. 4.0 [place] catheter. Right Coronary Artery selective angiography was then performed in multiple views using a 5 Fr. 4.0 [place] catheter. Left Ventriculography was performed in COTTON projection using a 5 Fr. Pigtail catheter. LV to AO pullback pressures were then recorded.The arterial sheath was pulled and a TR Band was applied for hemostasis CORONARY ANGIOGRAPHY DOMINANCE: Right Dominant LEFT HEART ASSESSMENT Left Ventricular Ejection Fraction: by LV Gram 60 % Normal LV wall motion Normal Left Ventricular systolic function Normal Left Ventricular systolic function RIGHT HEART ASSESSMENT Thermal CO: 5.68 Thermal CI: 2.9 Joseph CO: 6.41 Joseph CI: 3.27 PW: 10/8 7 PA: 23/10 16 RV: 29/0 8 RA: 5/3 2 PVR: 127 SVR: 1183 Right Heart pressures - normal LEFT MAIN: Angiographically normal LEFT ANTERIOR DESCENDING ARTERY: Angiographically normal CIRCUMFLEX ARTERY: Angiographically normal RIGHT CORONARY ARTERY: Angiographically normal VALVE FINDINGS: Mitral Valve Prolapse Moderate Mitral Valve Insufficiency - Grade 3 COMPLICATIONS No Complications PROCEDURE MEDICATIONS Versed 1 mg IV Heparin diluted in 23cc Heparinized saline. Patient given 10cc IA of this solution. 01/27/2019 11:39: 42 Verapamil 2.5mg, Ntg 100mcgs, 2000 units of Heparin diluted in 23cc Heparinized saline. Patient give n 10cc IA of this solution. 01/27/2019 11:39:42 SUMMARY OF HEMODYNAMIC DATA Time AIR REST ECG 08:39:49 RA 5/3 (2) SV 11:42:58 PW 04/08 (7) PV 11:46:44 PA /10 (16) PA 11:46:56 RV 29/0, 8 11:50:01 AO 114/65 (86) SA 11:53:26 LV 107/-7, 7 12:00:48 LV 116/-7, 7 12:00:55 LV 108/-4, 7 12:02:56 LVp 112/-7, 10 12:03:00 AOp 113/55 (80) 12:03:05 AO 113/55 (80) 12:03:08 Type SV CO (l/m) CI (l/m/ HR Time AIR REST Thermal 84.80 5.68 2.90 67 08:39:49 Joseph 95.70 6.41 3.27 67 08:39:49 Label % O2 Pres/Loc Time AIR REST AO 95 PV 11:56:34 PA 74 PA 11:56:49 RA 72 SV 11:56:56 Signed By Juarez Ortez MD On 01/27/2019 12:12:48 Signed By Juarez Ortez MD On 01/27/2019 12:12:29 Juarez Ortez MD
[2019-01-27 12:16] LABS: Blood Gas Specimen Type VEN; VBG BASE EXCESS -2 mmol/L (-1.0-3.5); VBG Bicarbonate 24 mmol/L (22-26); VBG Oxygen Content 25 mmol/L (23-33); VBG PO2 41 mmHg (25-40); VBG SO2 72 % (50-70); VBG pCO2 43.9 mmHg (41-51); VBG pH 7.34 (7.32-7.42)
[2019-01-27 12:16] LABS: Blood Gas Specimen Type VEN; VBG BASE EXCESS -1 mmol/L (-1.0-3.5); VBG Bicarbonate 24 mmol/L (22-26); VBG Oxygen Content 26 mmol/L (23-33); VBG PO2 42 mmHg (25-40); VBG SO2 74 % (50-70); VBG pCO2 44.1 mmHg (41-51); VBG pH 7.35 (7.32-7.42)
[2019-01-27 12:16] LABS: Base Excess -3 mmol/L (-2 to +2); Bicarbonate 22.7 mmol/L (22-26); Blood Gas Specimen Type ART; PO2 80 mmHG (75-100); SO2 95 % (95-99); Total Carbon Dioxide 24 mmol/L; pCO2 40.5 mmHg (35-45); pH 7.36 (7.35-7.45)
== END 2019-01-27 14:55 | disposition home or self-care (01) ==
LOC: CVS 08:18
PROVIDERS: Family Provider Family Medicine; PCP Family Medicine; Referring Provider Internal Medicine Cardiovascular Disease; Visit Provider Internal Medicine Cardiovascular Disease
DX: I34.1 Nonrheumatic mitral (valve) prolapse (principal); I34.0 Nonrheumatic mitral (valve) insufficiency; Z87.891 Personal history of nicotine dependence
CPT/HCPCS: 82803; 93312; 93320; 93325; 93460; 99152; 99153; J7040; Q9967; A4216; C1751; C1769; C1894

== ENCOUNTER → 2019-05-22 15:31 | Outpatient (CLI) | payer MEDICARE, SELFPAY ==
[2019-05-22 11:46] VITALS: BMI 23.2
--- NOTE | 2019-05-22 15:34 | RAD_ITS ---
STUDY: X-RAY CHEST REASON FOR EXAM: Male, 74 years old. Follow-up, postoperative. TECHNIQUE: PA and lateral views of the chest. COMPARISON: 08/17/18. FINDINGS: The lungs are hyperexpanded with increased lucency, cannot exclude emphysema/COPD. There is minimal right basilar atelectasis. Remainder of the lung hooks are clear. There is no demonstrated pleural abnormality. Normal size heart. Interval surgical changes with valve repair demonstrated. Normal mediastinum and raymon. Normal visualized pulmonary arteries. There is atherosclerotic calcification of the aortic arch with tortuosity. Normal visualized thoracic spine. There is degenerative osteoarthritis of the bilateral shoulders. There is no demonstrated abnormality of the visualized soft tissue structures of the upper abdomen. RAD/Chest PA and Lateral IMPRESSION: Possible underlying emphysema/COPD with mild right basilar atelectasis, otherwise no acute cardiopulmonary process seen. Electronically Signed: Sachi Thomas MD at 2:16 EST , Service support ,
== END ==
PROVIDERS: Family Provider Family Medicine; PCP Family Medicine; Referring Provider Internal Medicine Cardiovascular Disease; Visit Provider Internal Medicine Cardiovascular Disease
DX: R07.9 Chest pain, unspecified (principal); Z98.890 Other specified postprocedural states
CPT/HCPCS: 71046

== ENCOUNTER → 2019-07-08 09:50 | Outpatient (CLI) | payer MEDICARE, SELFPAY ==
[2019-05-22 11:46] VITALS: BMI 23.2
[2019-07-07 09:32] VITALS: BMI 24.0
--- NOTE | 2019-07-08 10:09 | PCM.CR.HP2 ---
CR - History & Physical - General Arrival date:: 07/08/19 Arrival time:: 09:50 Date of Referral:: 06/02/19 Date of CR Evaluation:: 07/08/19 Referring Physician: DR HUNTER Primary Diagnosis: HEART VALVE REPAIR - History of Present Cardiac Event Onset Date: Enter Onset Date of cardiac illnesses in Comment field below Current stable Angina Pectoris:: No Acute Myocardial Infarction within 12 months:: No Coronary Artery Bypass Graft:: No Heart valve replacement or repair:: Yes - MV REPAIR PTCA or coronary stenting:: No Heart Failure EF <35%:: No Type of Symptoms:: MINIMUM. HAD NEGATIVE HEART CATH, BUT HAD MVP THAT NEEDED REPAIRED Interventions with present event:: MV REPAIR Were there any complications?: NONE - Medications Home Medications: Ambulatory Orders Medication Instructions Recorded aspirin 81 mg tablet,delayed 162 mg PO DAILY tab 05/21/19 release multivitamin 1 tab PO DAILY 05/21/19 - Allergies Allergies/Adverse Reactions: Allergies tamsulosin [From Flomax] Allergy (Verified 07/07/19 10:18) Unknown - Sleep Disorder Evaluation Hx of Sleep Apnea: No Do you snore loudly (louder than talking or can be heard through closed doors)?: Yes Do you often feel tired/ fatigued/ sleepy during daytime?: No Has anyone observed you stop breathing during sleep?: Yes - SAID HE USE TO SEEM LIKE HE STOPPED BREATHING, BUT NOT LATELY, LIKE ITS GOT BETTER History of Hypertension (for STOP score): No STOP Results: Positive Advanced Directives - Advanced Directives Power of Teacher Industrial Arts: Yes - PT STATES NOT ON FILE HERE, BUT ENCOURAGED TO BEING IN Living Will: Yes Advance Directives Information Provided: Yes - PT PLANS ON BRINGING IN A COPY Advance Directives on File: No DNR Order?:: No Past Medical History - Past Medical Illness Medical History: Past Medical History (Last Reviewed 05/22/19 @ 16:29 by Juarez Hunter MD) Nonrheumatic mitral (valve) insufficiency (Chronic) I34.0 Nonrheumatic mitral (valve) prolapse (Chronic) I34.1 Enlarged prostate N40.0 Nasal bone fractures S02.2XXA Nondisplaced fracture of left frontal skull S02.0XXA Acute kidney injury Onset Date: 08/25/18 N17.9 Adynamic ileus K56.0 History of pulmonary embolism Z86.711 Hydronephrosis due to obstruction of bladder Onset Date: 08/25/18 N13.30, N32.0 Traumatic epidural hematoma S06.4X9A - Past Surgical History Surgical History: Past Surgical History (Last Reviewed 05/22/19 @ 16:29 by Juarez Hunter MD) History of mitral valve repair (Resolved) Onset Date: 05/12/19 Z98.890 Posterior leaflet repair #35 Bhakta Band MV annuloplasty ring 05/12/19 History of cataract surgery Z98.49 History of right and left heart catheterization Onset Date: 01/27/19 Z98.890 History of tonsillectomy Z90.89 History of transurethral resection of prostate Onset Date: 08/2018 Z98.890, Z90.79 Surgical History: no surgical history, tonsillectomy - Family History Summary Family History: Family History (Last Reviewed 05/22/19 @ 16:29 by Juarez Hunter MD) Father Myocardial infarction [place] in his 40's CAD (coronary artery disease) Brother CAD (coronary artery disease) had a CABG age 65 Social History - Smoking History Smoking Status: Former smoker Years Smokin Packs Smoked per Day: 1 - QUIT BACK IN THE 70'S - Alcohol Use Alcohol Usage: No - Substance Abuse Hx Substance Use: No - Occupation Occupation (List type of work in comments):: Employed Hours worked per day:: 8 - Hobbies, Recreation, Social Activities Hobbies: Reading, Other - LIKES TO RIDE A BIKE Recreational Activities: I am able to engage in most, but not all activities Social Environment - Status Marital Status: - Current Living Arrangements Living Environment:: Spouse - Children How many children do you have?: 3 Do any of your children live nearby?: Yes - Safety Do you feel safe in your surroundings?: Yes - Assistance Do you need any assistance at home?: NONE Review of Systems - Review of Systems Hints: Right click = Denies (Slash). Left click = Reports ([place]) Review of Present Symptoms: Reports: Operative Discomfort - SLIGHT DISCOMFORT AT HEALING POET-OP SITES, Wound Healing. Denies: Shortness of Breath at Rest, Shortness of Breath with Exertion, PVD, Angina, Dizziness/Lightheadedness, Fatigue, Heart Arrhythmia/Irregularities - Pain Is Patient Pain Free?: Yes Risk Factor Assessment - Chief Complaint Chief Complaint: MV REPAIR PT HERE FOR INITIAL CR EVAL - Vital Signs Temperature: 98.6 F Respiratory Rate: 16 Pulse Ox: 96 Blood Pressure: 96/78 Nailbeds:: PINK - Pulse Pulse Rate: 112 Pulse Rhythm: Regular - Hypertension How long have you been treated?: NO HX OF HTN - Blood Cholesterol/Lipids Total Cholesterol (mg/dL) Goal = less than 200 mg/dL: 150 HDL Cholesterol (mg/dL) Goal = less than 40 mg/dL: 48 LDL Cholesterol (mg/dL) Goal = less than 70 mg/dL: 144 Triglycerides (mg/dL) Goal = less than 150 mg/dL: 75 - Diabetes Nutrition Referral for Diabetes: No - Obesity Height: 5 ft 10 in Weight:: 162 lb Weight in Pounds: 162.0 lbs Weight Source: Stated by Patient Body Mass Index (BMI): 23.2 - Physical Inactivity Physical Inactivity: Recreational activity - Risk Stratification Risk Guidelines: Lowest Risk: Risk Factor for Smoking, Risk Factor for Dyslipidemia, Risk Factor for Diabetes, Risk Factor for Obesity, Risk Factor for Hypertension, Risk Factor for Sedentary Lifestyle, Risk Factor for Depression - For Smoking Smoking Risk Guidelines: Smoking Low Risk: None or quit greater than 6 months ago. Smoking Moderate Risk: Smoker or quit 6 months or less ago. Smoking High Risk: Smoker - For Dyslipidemia Dyslipidemia Risk Guidelines: Low Risk: Moderate Risk: High Risk: 15-25% fat 25.1-29% fat >/= 30% fat. <7% sat fat 7-9% sat fat >9% sat fat. <150 mg chol 150-299 mg chol >/= 300 mg chol. LDL <100 LDL 100-129 LDL >/= 130. Chol/HDL ratio <5.0 Chol/HDL ratio 5.0-6.0 Chol/HDL ratio >6.0. Triglycerides <100 Triglycerides 100-149 Triglycerides >/= 150 - For Diabetes Mellitus Diabetes Risk Guidelines: Diabetes Low Risk: HgA1c <6.5% and/or FBG <120. Diabetes Moderate Risk: HgA1c 6.6-7.9% and/or FBG 120-180. Diabetes High Risk: HgA1c >/= 8% and/or FBG >180 - For Obesity/Overweight Obesity/Overweight Risk Guidelines: Obesity Low Risk: BMI <25.0. Obesity Moderate Risk: BMI 25-29.9. Obesity High Risk: BMI >/= 30.0 - For Hypertension Hypertension Risk Guidelines: Hypertension Low Risk: Systolic <120 and Diastolic <80. Hypertension Moderate Risk: Systolic 120-139 and Diastolic 80-89. Hypertension High Risk: Systolic >/= 140 and Diastolic >/= 90 - For Sedentary Lifestyle Sedentary Lifestyle Risk Guidelines: Sedentary Lifestyle Low Risk: >/= 1,500 kcal/week. Sedentary Lifestyle Moderate Risk: 700-1,499 kcal/week. Sedentary Lifestyle High Risk: < 700 kcal/week - For Depression Depression Risk Guidelines: Depression Low Risk: Not clinically depressed. Depression Moderate Risk: Mildly depressed. Depression High Risk: Clinically depressed - Family History Family History: Family History (Last Reviewed 05/22/19 @ 16:29 by Juarez Hunter MD) Father Myocardial infarction CAD (coronary artery disease) Brother CAD (coronary artery disease) Motivation - Motivation to Participate On a scale of 1 to 10, how prepared are you to commit to attending program?: 10 What do you see as barriers to successfully being able to complete the program?: NONE What do you see as the benefits of succesfully completing the program? In other words, what do you hope to get out of participating in the program?: INCREASED ENERGY AND STRENGTH Are there issues you are dealing with that will interfere with completing the program?: NONE Do you have a spouse or signficant other, family or friends who will help support you to complete the program?: SPOUSE
--- NOTE | 2019-07-08 10:09 | PCM.CR.ITP ---
General Information - General Information Admitting Diagnosis: MV REPAIR Special Needs: NONE - Education/Goals Barriers to Learning: None Individual Counseling: Initial Assessment: Family History of Heart Disease (under 65 years) - NO OTHER RISK FACTORS Cardiac Rehabilitation Goals: 1. Maintain the individual as the primary focus of care. 2. To improve the patient's quality of life. 3. Identification of cardiac risk factors and provide cardiac risk factor management. 4. Enhance the psychosocial status of the patient. 5. Reconditioning enough to allow the patient to resume customary activities. 6. Control symptoms of cardiac disease Scale for measuring improvement of personal goals: Enter appropriate number in Comments. 2 = Unchanged. 3 = Slightly Better. 4 = Moderate Improvement. 5 = Met my Goal Personal Goals: Initial Assessment: Improve energy level, Participate in home exercise program, Get back to work, or to resume activities faster, Improve muscle strength and endurance - Exercise - Initial Assessment - Visit Date of Eval: 07/08/19 - Stages of Change Stages of Change:: Action - Physician Prescribed Exercise Modalities: Treadmill, Biodyne, Rower, Airdyne, NuStep, SciFit Frequency (days/week): 3x/week for 12 weeks [36 sessions] Intensity: 60-80% age predicted maximum heart rate reserve Target Heart Rate:: 95-124 - Hypertension Do any of the following apply?: No Resting Blood Pressure:: 96/78 - Intervention Home Exercise/Activity Goal:: Sitting Time <3 hrs/day - Education Goals:: Warm-up, RPE DIANN Scale, Safe Exercise, Self-Monitoring - Exercise Program Goals Exercise Program Goals: Aerobic Activity >30 min Nutrition - Initial Assessment - Program Goals Nutrition Program Goals: LDL <70. Total Cholesterol <200. HDL >45. Triglycerides <150. HgbA1C <7%. BMI <25 - Stages of Change Stages of Change:: Action - Lipids Total Cholesterol (mg/dL) Goal = less than 200 mg/dL: 150 HDL Cholesterol (mg/dL) Goal = less than 45 mg/dL: 48 LDL Cholesterol (mg/dL) Goal = less than 70 mg/dL: 144 Triglycerides (mg/dL) Goal = less than 150 mg/dL: 75 Lipid Medication: NONE - Diabetes Diabetes:: No - Weight Management Height: 5 ft 10 in Weight:: 162 lb - Intervention Referral to dietitian:: No Referral to Diabetic Clinic:: No Will attend diet classes:: Yes - CR CLASSES - Education Gave educational materials for:: Signs & symptoms of hypoglycemia, Signs & symptoms of hyperglycemia, Relate diabetes to coronary artery disease, Healthy eating - NO ON-LINE ACCESS, GAVE PRINTED EDUCATION BOOKLET Tobacco - Initial Assessment - Program Goals Tobacco Program Goals: Complete smoking cessation. Attend education classes. Improve Knowledge Test score - Stage of Change Stages of Change:: Action - Learning Barriers Learning Barriers: Ready to Learn - Family Support Do you have family support?: Yes - Tobacco Use Tobacco Use: Non-smoker How long ago did you quit using tobacco products?: Greater than or equal to 6 months ago - Intervention Smoking Cessation Referral:: No Individual Education/Counseling:: No Education Schedule Given:: Yes - DISCUSSED CR CLASSES WELL GAVE PRINTED BOOKLET - Education Attended class for:: Treating Heart Disease, How The Heart Works, What it means to have Heart Disease, How Coronary Artery Disease is Diagnosed, Heart Procedures, What Heart Medications Do, Risk Factors & Modifications, Living an Active Life, Nutrition, Emotions & Heart Disease, Stress Management & Relaxation, Sleep Disorders & Heart Disease - WILL ATTEND CR CLASSES WITH EXERCISE SCHEDULE Psychosocial - Initial Assess - Target Goals Target Goals: Assess presence or absence of depression. Using a valid screening tool, maximizes coping skills. Positive support system - Stages of Change Stages of Change:: Action - Psychosocial Test Tool Used:: HANDS Depression Questionnaire - Intervention PS - Interventions: Yes Attend Stress Management Classes - CR CLASSES, Yes Uses Stress Management Skills - CR CLASSES, No Referral to Mental Health, No Referral to [facility] Case Management, No Referral to Physician - Education Gave educational materials for:: Coping techniques, Signs & symptoms of depression, Stress management, Relaxation techniques - Patient/Program Goal Preventative Medication(s):: Aspirin - Assistive Devices Assistive Devices:: None Fall Risk Assessed:: Yes Patient Health Questionnaire Initial Assessment 1. Little interest or pleasure in doing things: Several days 2. Feeling down, depressed, or hopeless: Several days 3. Trouble falling or staying asleep, or sleeping too much: Not at all 4. Feeling tired or having little energy: More than half the days 5. Poor appetite or overeating: Not at all 6. Feeling bad about yourself -- or that you are a failure or have let yourself or your family down: Not at all 7. Trouble concentrating on things, such as reading the newspaper or watching television: Not at all 8. Moving or speaking so slowly that other people could have noticed. Or the opposite - being so fidgety or restless that you have been moving around a lot more than usual: Not at all 9. Thoughts that you would be better off , or of hurting yourself in some way: Not at all How difficult have these problems made it for you to do your work, take care of things at home, or get along with other people?: Not difficult at all Total Score: 4 LISSA-Q SV Test - Statements CAD is a disease of the arteries in the heart: False Examples of risk factors for heart disease: True Angina is chest pain or discomfort: I Don't Know The benefits of resistance training include: True Eating more meat and dairy products: False Anti-platelet medications such as aspirin are important: True The only effective way to manage stress: False An exercise warm-up slowly increases heart rate: True Prepared, processed foods usually have high sodium: True Depression is common after a heart attack: True The statin medications lower cholesterol: True To control blood pressure, lower the amount of sodium: True If someone gets chest discomfort during walking: False Transfats are partially hydrogenated vegetable oils: True Sleep apnea that is not treated increases the risk: False To control cholesterol, one should become a vegetarian: False Someone knows if he/she is exercising at the right level: True Diabetes cannot be prevented with exercise & health eating: False Stress is a large risk for heart attack: True A diet that can help lower blood pressure is rich in: True - Total Score Total Correct Responses: 19 Self-Efficacy Initial Assessment We would like to know how confident you are in doing certain activities. Please select your confidence level for:: Select your confidence level for the following using the scale 1-10 where 1 is not at all confident and 10 is totally confident. Your score is the average of all 6 responses. Fatigue: How confident are you that you can keep the fatigue caused by your disease from interfering with the things you want to do? Select Number: 9 Physical Discomfort or Pain: How confident are you that you can keep the physical discomfort or pain of your disease from interfering with the things you want to do? Select Number: 10 Emotional Distress: How confident are you that you can keep the emotional distress caused by your disease from interfering with the things you want to do? Select Number: 10 Other Symptoms or Health Problems: How confident are you that you can keep other symptoms or health problems from interfering with the things you want to do? Select Number: 10 Different Tasks and Activities: How confident are you that you can do the different tasks and activities needed to manage your health condition so as to reduce your need to see a doctor? Select Number: 10 Medication: How confident are you that you can do things other than just taking medication to reduce how much your illness affects your everyday life? Select Number: 10 Total Score:: 9 Nutrition Survey - Nutrition Survey Instructions Scoring Instructions: Scoring is as follows: Yes = 1 points. No = 0 point. Patient score that is >/=12 is considered to be at potential nutritional risk and could benefit from a referral to a registered dietitian. - Nutrition Survey Initial Have you lost >10 lbs over the past 2 months without trying?: No Are you following a special diet at home for diabetes, low fat, or low salt?: No Are you interested in meeting with a dietitian for help understanding your diet?: No Do you eat less than 3 meals a day?: No Do you eat fatty meats (mortensen, sausage, ribs, etc), fried foods, desserts, large amounts of salad dressings, margarine, butter, or cheese most days?: No Do you have food allergies? [Enter types in comment field]: No Do you eat in restaurants more than 3 times a week?: No Do you season food with salt, seasoning salt, or garlic salt?: No Do you used canned, boxed, frozen meals, or soups, seasoning packets?: No Total Score:: 0
[2019-07-08 10:37] VITALS: BP 96/78; PULSE 112; RESP 16; TEMP 37; O2SAT 96; BMI 23.2
[2019-07-08 10:48] VITALS: BP 96/78
== END ==
PROVIDERS: Family Provider Family Medicine; PCP Family Medicine; Referring Provider Internal Medicine Cardiovascular Disease; Visit Provider Internal Medicine Cardiovascular Disease
DX: I34.0 Nonrheumatic mitral (valve) insufficiency (principal); I34.1 Nonrheumatic mitral (valve) prolapse; Z86.711 Personal history of pulmonary embolism; Z95.2 Presence of prosthetic heart valve; Z79.82 Long term (current) use of aspirin; Z79.899 Other long term (current) drug therapy; Z87.891 Personal history of nicotine dependence

== ENCOUNTER 2019-08-01 09:15 | Outpatient (RCR) | payer MEDICARE, SELFPAY ==
[2019-07-08 10:37] VITALS: BMI 23.2
== END 2019-08-01 23:59 ==
LOC: CR 09:15
PROVIDERS: Family Provider Family Medicine; PCP Family Medicine; Referring Provider Internal Medicine Cardiovascular Disease; Visit Provider Internal Medicine Cardiovascular Disease
DX: I34.0 Nonrheumatic mitral (valve) insufficiency (principal); I34.1 Nonrheumatic mitral (valve) prolapse; Z98.890 Other specified postprocedural states
CPT/HCPCS: 93798

== ENCOUNTER 2019-08-29 09:15 | Outpatient (RCR) | payer MEDICARE, SELFPAY ==
[2019-07-28 09:15] VITALS: BMI 24.5
--- NOTE | 2019-08-08 08:09 | PCM.CR.ITP ---
Diagnosis - General Information Admitting Diagnosis: VALVE REPAIR/REPLACEMENT Personal Learning Style:: Audio/Visual, Written Barriers to Learning: Vision Impairment Stage of change r/t lifestyle modifications:: Action Gave educational material for:: Treating Heart Disease, Emotions & Heart Disease, Stress Management & Relaxation, Sleep Disorders & Heart Disease, How The Heart Works, What it means to have Heart Disease, How Coronary Artery Disease is Diagnosed, Heart Procedures, What Heart Medications Do, Risk Factors & Modifications, Living an Active Life, Nutrition - Education/Goals Individual Counseling: Initial Assessment: Abnormal Cholesterol Levels, High Blood Pressure Cardiac Rehabilitation Goals: 1. Maintain the individual as the primary focus of care. 2. To improve the patient's quality of life. 3. Identification of cardiac risk factors and provide cardiac risk factor management. 4. Enhance the psychosocial status of the patient. 5. Reconditioning enough to allow the patient to resume customary activities. 6. Control symptoms of cardiac disease Personal Goals: Initial Assessment: Improve energy level, Participate in home exercise program, Get back to work, or to resume activities faster, Improve muscle strength and endurance Scale for measuring improvement of personal goals: Enter appropriate number in Comments. 2 = Unchanged. 3 = Slightly Better. 4 = Moderate Improvement. 5 = Met my Goal - Diagnosis & Disease Process Outcomes/Goals: Pt IDs own risk factors & lifestyle modifications by Session 10, Verbalizes symptoms of angina & response by session 3., Pt independently manages Plan/Interventions: Assist Pt to ID & engage in lifestyle modification to reduce CVD risk, Instruct on individual risk factors, Review symptoms of angina & emergency actions, Review secondary diagnosis & identify educational needs. 30 day Reassessments:: Progressing - Safety Referral to [facility] Case Management: No Fall Risk Assessed:: Yes Assistive Devices:: None Exercise - 30-day Assessment - Visit Date of Eval: 08/08/19 Session #:: 12 - STARTED ON 07/11/2019 HAS NOT MISSED ANY SESSIONS. - Physician Prescribed Exercise Modalities: Treadmill, Airdyne, NuStep Frequency: 3x/week for 12 weeks [36 sessions] Intensity: 60-80% of age predicted maximum heart rate reserve Current METSs:: 6.0 UP FROM 4.5 Target Heart Rate:: 95-124 Current RPE:: 12-13 Maximum Excercise HR:: Resting Blood Pressure: 100/60 Maximum Exercise Blood Pressure: 128/64 EKG Type: NSR w/rare PVCs. Current Physical Activity or Exercising minutes: 30 - Outcomes & Goals Goals:: Verbalizes understanding of THR, RPE & goal METS by session 6, Documents in home exercise log/reports 30 min aerobic 5 day/wk by DC, Demonstrates accurate pulse taking by DC - Intervention & Plan Exercise Program Goals: Instruct on personal THR & RPE, Instruct on MET level & personal MET goal, Show patient to take own pulse /validate performance until accurate, Instruct on home exercise - 30-day Reassessments 30 day Reassessments:: Progressing - Physical Activity Home Exercise Physical Activity - Home Exercise: Safe Exercise, Warm-up, Self-monitoring, Cool-Down, Home Exercise > 30 min Daily, Sitting Time <3 hours/daily - Outcomes & Goals Outcomes/Goals: Demonstrates correct Warm-up/exercise Cool-Down (S3) if = 2.5 METs, Verbalizes symptoms of exercise intolerance by Session 3 (S3), Demonstrate safe equipment use (S3) & follows exercise prescrition (6) - Intervention & Plan Plan/Intervention: Instruct warm-up & cool-down if exercising at > 2 METs, Instruct on symptoms of exercise intolerance & actions to take, Instruct & monitor on saf, Assess intial functional capacity & safety risk - 30-day Reassessments 30 day Reassessments:: Progressing Nutrition - 30-Day Assessment - Program Goals Nutrition Program Goals: LDL <100 optimal. 100 - 129 Near optimal. 130 - 159 Borderline High. 160 - 189 High. Total Cholesterol <200 desirable. 200 - 239 Borderline High. >/= 240 High. HDL < 40 Low >/=60 High. Triglycerides <150 desirable. <199 optimal. VlDL 5 - 40. HgbA1C <7%. BMI <25 Patient has diagnosis of Hyperlipidemia (ICD E78)?: Yes - Visit Date of Assessment:: 08/08/19 Session #:: 12 - Cholesterol/Lipids Triglycerides (mg/dL): 75 Total Cholesterol (mg/dL): 207 LDL Cholesterol (mg/dL): 144 HDL Cholesterol (mg/dL): 48 Determine presence & major risk factors that modify LDL goal: Age men > 45 years; women >/= 55 years Outcomes/Goals: Pt IDs own risk factors & lifestyle modifications by Session 10, Verbalizes symptoms of angina & response by session 3., Pt independently manages Intervention/Plan: Instruct on personal lipid levels & lipid goals/NCEP guidelines, Instruct on cholesterol Referral to dietitian:: No - PATIENT DECLINED - Diabetes (Other Core Measures) Diabetes Type: Not Applicable - Weight Mgt (Other Care) Not Applicable: Yes Height: 5 ft 10 in Weight:: 175 lb BMI: 25.1 Diagnosis Overweight/Obesity BMI> 30% ICD-10 E66: No Diagnosis High BMI/Morbid Obesity BMI> 35% ICD-10 Z68: No Outcomes/Goals: Pt sets, maintains & shows weight loss goal & trend during rehab Intervention/Plan: Instruct on ideal BMI & set weight loss goal w/patient, Assist pt to ID & incorporate diet changes for weight loss by S9, Refer to Structured Weight Loss program as appropriate, Encourage goal of using 250-300dcal per session for weight loss 30 day Reassessments:: Progressing - Healthy Eating Habits Will attend diet classes:: Yes Outcomes/Goals:: Consume diet rich in vegs,fruits,whole grain/high fiber,fish,lean meat, Limit sat/trans fats,cholesterol & added salts & sugars 30-day Reassessments:: Progressing - Education Gave educational materials for:: Healthy eating Medical- 30-Day Assessment - Visit Date of Eval: 08/08/19 Session #:: 12 - Medication Compliance Preventative Medication(s):: Aspirin, Beta rizwana H/O mental health issues: depression, anxiety, or addiction?: No Doesn?t believe in the benefits of treatment?: No Believes medications are unnecessary or harmful?: No Has a concern about medication side effects?: No Expresses concern over the cost of medications?: No Outcomes/Goals: Verbalizes medications,desired effect & common side effects @ DC, Pt self-reports following medication regimen, Keeps card in wallet w/medications listed by DC Interventions/plans: Instruct on medication effects & side effects, Review medication list w/patient every two weeks, Instruct importance of taking meds as ordered & assist problem solving 30-day Reassessments:: Met - PATIENT REPORTS COMPLIANCE WITH MEDICATIONS - Tobacco Use Tobacco Use: Non-smoker - Hypertension Resting Blood Pressure:: 100/60 [employer] Hypertension Guidelines: [employer] Hypertension Guidelines. Normal BP Less than 120/80. Elevated BP 120/80. Hypertension Stage 1: BP 130-139/80-89. Hypertesnion Stage 2: BP 140 or higher/90 or higher. Hypertension Crisis: BP higher than 180/120 Peak Exercise Blood Pressure:: 128/64 Outcomes/Goals: Able to verbalize/achieve optimal blood pressure <130/80, Incorporates diet changes & exercise for blood pressure control by DC Interventions/plan: Instruct on optimal blood pressure, hypertension & medications, Instruct on effects of sodium, alcohol, stress, exercise &hypertension 30 day Reassessments:: Progressing - Tobacco Cessation Referral Smoking Cessation Referral:: No Psychosocial - 30-Day Assess - VIsit Date of Eval: 08/08/19 Session #:: 12 Not Applicable: No History of previous Mental disease:: No - Target Goals Target Goals: Assess presence or absence of depression. Using a valid screening tool, maximizes coping skills. Positive support system - Psychosocial Test Tool Used:: skillsbite[employer] QOL Cardiac, PHQ-9 Questionnaire phq-9 Severity: Severity. 1-4 Minimal Depression. 5-9 Mild Depression. 10-14 Moderate Depression. 15-19 Moderately Sever Depression. 20-27 Severe Depression. Rule: - Referral to Behavioral Health PS - Interventions: Yes Attend Stress Management Classes, No Referral to Behavioral Health if PHQ-9 score >9:, No Referral to [facility], No Referral to Physician if PHQ-9 if score is 5-9: - Outcomes/Goals: See list Psychosocial Outcomes/Goals:: ID's personal stressors & 2 strategies to manage stress by discharge - Intervention/Plan: See List Interventions/Plan:: Assess stressors,coping strategies & signs of derpression on admission, Instruct/assist pt to develop coping & personal stress Mgt strategies, Instruct patient to recognize signs & symptoms of depression, Instruct patient to recog - 30-day Reassessments: 30 day Reassessments:: Progressing Patient Health Questionnaire 30-Day Re-eval Assessment 1. Little interest or pleasure in doing things: Not at all 2. Feeling down, depressed, or hopeless: Not at all 3. Trouble falling or staying asleep, or sleeping too much: Not at all 4. Feeling tired or having little energy: Several days 5. Poor appetite or overeating: Not at all 6. Feeling bad about yourself -- or that you are a failure or have let yourself or your family down: Not at all 7. Trouble concentrating on things, such as reading the newspaper or watching television: Not at all 8. Moving or speaking so slowly that other people could have noticed. Or the opposite - being so fidgety or restless that you have been moving around a lot more than usual: Not at all 9. Thoughts that you would be better off , or of hurting yourself in some way: Not at all How difficult have these problems made it for you to do your work, take care of things at home, or get along with other people?: Not difficult at all Total Score: 1 Self-Efficacy 30-Day Re-eval Assessment We would like to know how confident you are in doing certain activities. Please select your confidence level for:: Select your confidence level for the following using the scale 1-10 where 1 is not at all confident and 10 is totally confident. Your score is the average of all 6 responses. Fatigue: How confident are you that you can keep the fatigue caused by your disease from interfering with the things you want to do? Select Number: 10 Physical Discomfort or Pain: How confident are you that you can keep the physical discomfort or pain of your disease from interfering with the things you want to do? Select Number: 10 Emotional Distress: How confident are you that you can keep the emotional distress caused by your disease from interfering with the things you want to do? Select Number: 10 Other Symptoms or Health Problems: How confident are you that you can keep other symptoms or health problems from interfering with the things you want to do? Select Number: 10 Different Tasks and Activities: How confident are you that you can do the different tasks and activities needed to manage your health condition so as to reduce your need to see a doctor? Select Number: 10 Medication: How confident are you that you can do things other than just taking medication to reduce how much your illness affects your everyday life? Select Number: 10 Total Score:: 10
[2019-08-08 08:18] VITALS: BP 100/60; BP 128/64; BMI 25.1
== END 2019-08-30 23:59 ==
LOC: CR 09:15
PROVIDERS: Family Provider Family Medicine; PCP Family Medicine; Referring Provider Internal Medicine Cardiovascular Disease; Visit Provider Internal Medicine Cardiovascular Disease
DX: I34.0 Nonrheumatic mitral (valve) insufficiency (principal); I34.1 Nonrheumatic mitral (valve) prolapse; Z98.890 Other specified postprocedural states
CPT/HCPCS: 93798

== ENCOUNTER 2019-09-12 09:15 | Outpatient (RCR) | payer MEDICARE, SELFPAY ==
[2019-07-28 09:15] VITALS: BMI 24.5
[2019-08-08 08:18] VITALS: BMI 25.1
[2019-08-31 00:48] VITALS: BP 100/60; BP 128/64
--- NOTE | 2019-09-05 10:25 | CR.ITP_ITS ---
Diagnosis - General Information Admitting Diagnosis: VALVE REPAIR/ REPLACEMENT Personal Learning Style:: Audio/Visual, Written Barriers to Learning: Vision Impairment Stage of change r/t lifestyle modifications:: Action Gave educational material for:: Treating Heart Disease, Emotions & Heart Disease, Stress Management & Relaxation, Sleep Disorders & Heart Disease, How The Heart Works, What it means to have Heart Disease, How Coronary Artery Disease is Diagnosed, Heart Procedures, What Heart Medications Do, Risk Factors & Modifications, Living an Active Life, Nutrition - Education/Goals Individual Counseling: Initial Assessment: Abnormal Cholesterol Levels, High Blood Pressure Cardiac Rehabilitation Goals: 1. Maintain the individual as the primary focus of care. 2. To improve the patient's quality of life. 3. Identification of cardiac risk factors and provide cardiac risk factor management. 4. Enhance the psychosocial status of the patient. 5. Reconditioning enough to allow the patient to resume customary activities. 6. Control symptoms of cardiac disease Personal Goals: Initial Assessment: Improve energy level, Participate in home exercise program, Get back to work, or to resume activities faster, Improve muscle strength and endurance Scale for measuring improvement of personal goals: Enter appropriate number in Comments. 2 = Unchanged. 3 = Slightly Better. 4 = Moderate Improvement. 5 = Met my Goal - Diagnosis & Disease Process Outcomes/Goals: Pt IDs own risk factors & lifestyle modifications by Session 10, Verbalizes symptoms of angina & response by session 3., Pt independently manages Plan/Interventions: Assist Pt to ID & engage in lifestyle modification to reduce CVD risk, Instruct on individual risk factors, Review symptoms of angina & emergency actions, Review secondary diagnosis & identify educational needs. 30 day Reassessments:: Progressing 30 day Reassessments:: Progressing - Safety Referral to Physical Therapy: No Referral to [facility] Case Management: No Fall Risk Assessed:: Yes Assistive Devices:: None Exercise - 60-day Assessment - Visit Date of Eval: 09/05/19 Session #:: 25 - Physician Prescribed Exercise Modalities: Treadmill, Airdyne, NuStep Frequency: 3x/week for 12 weeks [36 sessions] Intensity: 60-80% of age predicted maximum heart rate reserve Current METSs:: 7.5 Target Heart Rate:: 95-124 Current RPE:: 12-13 Maximum Excercise HR:: 104 Resting Blood Pressure: 88/50 Maximum Exercise Blood Pressure: 140/62 EKG Type: NSR to sinus tachycardia with rare PACs and PVCs. - Outcomes & Goals Goals:: Verbalizes understanding of THR, RPE & goal METS by session 6, Documents in home exercise log/reports 30 min aerobic 5 day/wk by DC, Demonstrates accurate pulse taking by DC - Intervention & Plan Exercise Program Goals: Instruct on personal THR & RPE, Instruct on MET level & personal MET goal, Show patient to take own pulse /validate performance until accurate, Instruct on home exercise - 30-day Reassessments 30 day Reassessments:: Progressing - Physical Activity Home Exercise Physical Activity - Home Exercise: Safe Exercise, Warm-up, Self-monitoring, Cool-Down, Home Exercise > 30 min Daily, Sitting Time <3 hours/daily - Outcomes & Goals Outcomes/Goals: Demonstrates correct Warm-up/exercise Cool-Down (S3) if = 2.5 METs, Verbalizes symptoms of exercise intolerance by Session 3 (S3), Demonstrate safe equipment use (S3) & follows exercise prescrition (6) - Intervention & Plan Plan/Intervention: Instruct warm-up & cool-down if exercising at > 2 METs, Instruct on symptoms of exercise intolerance & actions to take, Instruct & monitor on saf, Assess intial functional capacity & safety risk - 30-day Reassessments 30 day Reassessments:: Progressing Nutrition - 60-Day Assessment - Program Goals Nutrition Program Goals: LDL <100 optimal. 100 - 129 Near optimal. 130 - 159 Borderline High. 160 - 189 High. Total Cholesterol <200 desirable. 200 - 239 Borderline High. >/= 240 High. HDL < 40 Low >/=60 High. Triglycerides <150 desirable. <199 optimal. VlDL 5 - 40. HgbA1C <7%. BMI <25 Patient has diagnosis of Hyperlipidemia (ICD E78)?: No - Visit Date of Assessment:: 09/05/19 - Cholesterol/Lipids Determine presence & major risk factors that modify LDL goal: Hypertension or hypertensive medication Outcomes/Goals: Pt IDs own risk factors & lifestyle modifications by Session 10, Verbalizes symptoms of angina & response by session 3., Pt independently manages Intervention/Plan: Instruct on personal lipid levels & lipid goals/NCEP guidelines, Instruct on cholesterol Referral to dietitian:: No 30-day Reassessments:: Progressing - Diabetes (Other Core Measures) Diabetes Type: Not Applicable - Weight Mgt (Other Care) Not Applicable: Yes Height: 5 ft 10 in Weight:: 177 lb BMI: 25.4 Diagnosis Overweight/Obesity BMI> 30% ICD-10 E66: No Diagnosis High BMI/Morbid Obesity BMI> 35% ICD-10 Z68: No Outcomes/Goals: Pt sets, maintains & shows weight loss goal & trend during rehab Intervention/Plan: Instruct on ideal BMI & set weight loss goal w/patient, Assist pt to ID & incorporate diet changes for weight loss by S9 30 day Reassessments:: Progressing - Healthy Eating Habits Will attend diet classes:: Yes Outcomes/Goals:: Consume diet rich in vegs,fruits,whole grain/high fiber,fish,lean meat, Limit sat/trans fats,cholesterol & added salts & sugars Intervention/Plan:: Assess current eating habits 30-day Reassessments:: Progressing - Education Gave educational materials for:: Healthy eating Medical- 60-Day Assessment - Visit Date of Eval: 09/05/19 - Medication Compliance Preventative Medication(s):: Aspirin, Beta rizwana H/O mental health issues: depression, anxiety, or addiction?: No Doesn?t believe in the benefits of treatment?: No Believes medications are unnecessary or harmful?: No Has a concern about medication side effects?: No Expresses concern over the cost of medications?: No Outcomes/Goals: Verbalizes medications,desired effect & common side effects @ DC, Pt self-reports following medication regimen, Keeps card in wallet w/medications listed by DC Interventions/plans: Instruct on medication effects & side effects, Review medication list w/patient every two weeks, Instruct importance of taking meds as ordered & assist problem solving 30-day Reassessments:: Progressing - Tobacco Use Tobacco Use: Non-smoker - Hypertension Hypertension Diagnosis:: Hypertension ICD-10 I10 Resting Blood Pressure:: 88/50 - controlled [employer] Hypertension Guidelines: [employer] Hypertension Guidelines. Normal BP Less than 120/80. Elevated BP 120/80. Hypertension Stage 1: BP 130-139/80-89. Hypertesnion Stage 2: BP 140 or higher/90 or higher. Hypertension Crisis: BP higher than 180/120 Peak Exercise Blood Pressure:: 140/62 Outcomes/Goals: Able to verbalize/achieve optimal blood pressure <130/80, Incorporates diet changes & exercise for blood pressure control by DC Interventions/plan: Instruct on optimal blood pressure, hypertension & medications, Instruct on effects of sodium, alcohol, stress, exercise & hypertension 30 day Reassessments:: Progressing - Tobacco Cessation Referral Smoking Cessation Referral:: No Individual Education/Counseling:: No Education Schedule Given:: Yes Psychosocial - 60-Day Assess - VIsit Date of Eval: 09/05/19 Session #:: 25 Not Applicable: Yes History of previous Mental disease:: No - Target Goals Target Goals: Assess presence or absence of depression. Using a valid screening tool, maximizes coping skills. Positive support system - Psychosocial Test Tool Used:: [employer] QOL Cardiac, PHQ-9 Questionnaire phq-9 Severity: Severity. 1-4 Minimal Depression. 5-9 Mild Depression. 10-14 Moderate Depression. 15-19 Moderately Sever Depression. 20-27 Severe Depression. Rule: - Referral to Behavioral Health PS - Interventions: Yes Attend Stress Management Classes, No Referral to Behavioral Health if PHQ-9 score >9:, No Referral to [facility], No Referral to Physician if PHQ-9 if score is 5-9: - Outcomes/Goals: See list Psychosocial Outcomes/Goals:: ID's personal stressors & 2 strategies to manage stress by discharge - Intervention/Plan: See List Interventions/Plan:: Assess stressors,coping strategies & signs of derpression on admission, Instruct patient to recognize signs & symptoms of depression, Instruct patient to recog - 30-day Reassessments: 30 day Reassessments:: Progressing Patient Health Questionnaire 60-Day Re-eval Assessment 1. Little interest or pleasure in doing things: Not at all 2. Feeling down, depressed, or hopeless: Not at all 3. Trouble falling or staying asleep, or sleeping too much: Not at all 4. Feeling tired or having little energy: Not at all 5. Poor appetite or overeating: Not at all 6. Feeling bad about yourself -- or that you are a failure or have let yourself or your family down: Not at all 7. Trouble concentrating on things, such as reading the newspaper or watching television: Not at all 8. Moving or speaking so slowly that other people could have noticed. Or the opposite - being so fidgety or restless that you have been moving around a lot more than usual: Not at all 9. Thoughts that you would be better off , or of hurting yourself in some way: Not at all How difficult have these problems made it for you to do your work, take care of things at home, or get along with other people?: Not difficult at all Total Score: 0 Self-Efficacy 60-Day Re-eval Assessment We would like to know how confident you are in doing certain activities. Please select your confidence level for:: Select your confidence level for the following using the scale 1-10 where 1 is not at all confident and 10 is totally confident. Your score is the average of all 6 responses. Fatigue: How confident are you that you can keep the fatigue caused by your disease from interfering with the things you want to do? Select Number: 10 Physical Discomfort or Pain: How confident are you that you can keep the physical discomfort or pain of your disease from interfering with the things you want to do? Select Number: 10 Emotional Distress: How confident are you that you can keep the emotional distress caused by your disease from interfering with the things you want to do? Select Number: 10 Other Symptoms or Health Problems: How confident are you that you can keep other symptoms or health problems from interfering with the things you want to do? Select Number: 10 Different Tasks and Activities: How confident are you that you can do the different tasks and activities needed to manage your health condition so as to reduce your need to see a doctor? Select Number: 10 Medication: How confident are you that you can do things other than just taking medication to reduce how much your illness affects your everyday life? Select Number: 10 Total Score:: 10
[2019-09-05 10:32] VITALS: BP 140/62; BP 88/50; BMI 25.4
== END 2019-09-30 23:59 ==
LOC: CR 09:15
PROVIDERS: Family Provider Family Medicine; PCP Family Medicine; Referring Provider Internal Medicine Cardiovascular Disease; Visit Provider Internal Medicine Cardiovascular Disease
DX: I34.0 Nonrheumatic mitral (valve) insufficiency (principal); I34.1 Nonrheumatic mitral (valve) prolapse; Z98.890 Other specified postprocedural states
CPT/HCPCS: 93798

== ENCOUNTER 2023-12-05 09:29 | Day surgery (SDC) | payer MEDICARE, SELFPAY ==
[2019-09-05 10:32] VITALS: BMI 25.4
[2023-12-05 10:04] VITALS: BP 117/71; PULSE 66; RESP 16; TEMP 36.6; O2SAT 96; BMI 27.8
[2023-12-05] MEDS: Lactated Ringers 1,000 ML 15 ML IV (10:17)
[2023-12-05] MEDS: Cefazolin 2 GM in 0.9% Normal Saline (100mL Bag) 100 ML IV (11:55)
--- NOTE | 2023-12-05 12:32 | HP.PCM_ITS ---
HPI - General General Date of Service: 12/05/23 Chief Complaint: Right ureteral calculi HPI Narrative JOAQUÍN BOLDEN, is a 78 M who presents to laser of stone in the distal right ureter [facility] Medical History (Updated 11/30/23 @ 11:11 by Wendi Bhat) Wears glasses Kidney stones DVT (deep venous thrombosis) Injury of head and neck Former smoker Leg cramps History of echocardiogram Cardiology follow-up encounter Nonrheumatic mitral (valve) insufficiency History of pulmonary embolism (2008) Nonrheumatic mitral (valve) prolapse Nasal bone fractures Nondisplaced fracture of left frontal skull Enlarged prostate Acute kidney injury (08/25/18) Hydronephrosis due to obstruction of bladder (08/25/18) Traumatic epidural hematoma Adynamic ileus Home Medications ?Medication ?Instructions ?Recorded ?Last Taken ?Type multivitamin 1 tab PO DAILY 05/21/19 Unknown History amoxicillin 500 mg tablet 2,000 mg (4 x 500 mg) PO ONCE PRN 01/06/21 Unknown Rx mitral valve repair #12 tabs ciprofloxacin HCl 500 mg tablet 500 mg PO BID #6 tabs 12/05/23 Unknown Rx (Cipro) ibuprofen 600 mg tablet 600 mg PO Q6H PRN fever or pain 12/05/23 Unknown Rx #10 tabs Allergy/AdvReac Type Severity Reaction Status Date / Time tamsulosin (From Flomax) Allergy Unknown Verified 12/05/23 10:02 Family History Father Myocardial [facility] in his 40's CAD (coronary artery disease) Brother CAD (coronary artery disease) had a CABG age 65 Surgical History (Updated 11/30/23 @ 11:11 by Wendi Bhat) History of mitral valve repair (05/12/19) History of right and left heart catheterization (01/27/19) History of transurethral resection of prostate (08/2018) History of cataract surgery History of tonsillectomy Social History Smoking Status: Former smoker Vital Signs Vital Signs Vital Signs: 12/05/23 10:04 12/05/23 10:04 Temperature 98 F Temperature Source Temporal Pulse Rate 66 Respiratory Rate 16 Respiratory Pattern Normal Blood Pressure 117/71 Blood Pressure Mean 86 Blood Pressure Source Monitor Blood Pressure Position Semi-Fowlers Blood Pressure Location Right Arm Pulse Ox 96 Oxygen Delivery Method Room Air Weight Weight: 88 kg Body Mass Index (BMI) 27.8
--- NOTE | 2023-12-05 12:33 | DCINST_ITS ---
Discharge Instructions Diet Discharge Diet: No restrictions Activity Discharge Activity: Return to Normal Activity and May Not Drive (while taking narcotic pain medications.) Dressing / Incision Call your doctor if you observe: Fever of 101 or Higher Follow Up Care Please Follow Up With: Joo Estrada MD When: Call [phone] for an appointment Test Results: Test results from this visit will be discussed in further detail at your follow- up appointment, if applicable. Discharge Plan Admission Primary Reason for Your Visit: Laser of ureteral stone Attending Provider: Joo Estrada Primary Care Provider: Kris Shafer Instructions Print Language: Moroccan Discharge Orders/Prescriptions Prescriptions: New ciprofloxacin HCl [Cipro] 500 mg tablet 500 mg PO BID Qty: 6 0RF ibuprofen 600 mg tablet 600 mg PO Q6H PRN (Reason: fever or pain) Qty: 10 0RF Continued multivitamin Tablet 1 tab PO DAILY amoxicillin 500 mg tablet 2,000 mg PO ONCE PRN (Reason: mitral valve repair) Qty: 12 2RF Rx Instructions: take 4 tablets 30-60 minutes prior to any dental procedure Referrals / Follow Up: Joo Estrada MD [Med Staff - Active Staff] - Kris Shafer DO [Primary Care Provider] - Disposition Disposition (needs filled in before D/C Order can be placed): Home, Self Care
--- NOTE | 2023-12-05 12:33 | PCM.OPRPT ---
Report of Operation Date of Procedure: 12/05/23 Pre-Operative Diagnosis: Right ureteral calculi Post-Operative Diagnosis: The same Surgery/Procedure Performed:: Cystoscopy, balloon dilation of the right ureter, right ureteroscopy laser lithotripsy of stones, basket extraction of fragments. No stent Description of Surgical Findings:: Patient was taken back to the operating room at this with induction of anesthesia he was placed in dorsolithotomy position and look inside the bladder he had a prior TURP defect and the prostate channel was fairly wide open a little bit of regrowth on the right side of the prostate but other otherwise fairly open bladder was fairly heavily trabeculated I then cannulated the right ureteral orifice with a wire advanced a balloon dilator up to I could feel the stone and then balloon dilated the distal right ureter with 12 [place] balloon dilator I then left the wire in place and next to the wire went in with a semirigid ureteroscope was able to get to the stone fairly easily I then used the thulium laser and lasered the stone into tiny little pieces I then used an engage basket and back to get all the pieces out of the distal ureter so the ureter was clear of any fragments all the fragments were in the bladder I then drained the bladder patient's anesthetic was reversed and he was taken back to the PACU in good condition no stent was placed and he will follow-up in 1 month for an ultrasound check his kidney. Surgeon: Joo Estrada x ray equipment servicer: None Type of Anesthesia: General Drains: none Estimated Blood Loss (mL): 0 Admit VTE Documentation VTE Present on Admission: No VTE Mechan Device Prophylaxis: SCD's VTE Pharm Prophylaxis ordered?: No
[2023-12-05 12:39] VITALS: BP 117/71; BP 121/70; PULSE 57; RESP 14; TEMP 36.4; O2SAT 97
[2023-12-05 12:40] VITALS: BP 109/64; BP 117/71; PULSE 55; RESP 14; O2SAT 95
[2023-12-05 12:45] VITALS: BP 112/67; BP 117/71; PULSE 56; RESP 14; O2SAT 95
[2023-12-05 13:00] VITALS: BP 117/71; BP 120/69; PULSE 58; RESP 14; TEMP 36.6; O2SAT 96
[2023-12-05] MEDS: Ketorolac 15 MG/ML Vial IV (13:38)
[2023-12-05 14:16] VITALS: BP 117/71
== END 2023-12-05 14:18 | disposition home or self-care (01) ==
LOC: SDC 09:39 → AC 09:40
PROVIDERS: Referring Provider Urology; Visit Provider Urology
PROC: 0TJ98ZZ Inspection of Ureter, Via Natural or Artificial Opening Endoscopic (ICD-10-PCS; CPT 52352; principal; 2023-12-05 11:30)
DX: N20.1 Calculus of ureter (principal); Z87.891 Personal history of nicotine dependence; Z87.442 Personal history of urinary calculi
CPT/HCPCS: 52353; 00918; J7120; C1769; J2405